=== PATIENT | male | born 1945 | race Caucasian/White ===

== ENCOUNTER 2021-09-09 16:18 | Inpatient (IN) ==
[2021-09-09] MEDS ORDERED: IPRATROPIUM/ALBUTEROL 3 ML AMPUL.NEB NEB ONE ×2 (16:57→23:37)
--- NOTE | 2021-09-09 17:19 | XRay Report ---
HISTORY: Hypoxia, weakness FINDINGS: The lungs are clear and normally expanded. There is no congestive heart failure, mass or pleural effusion. The heart size is normal. Dual-chamber pacemaker is well-positioned. Comparison with prior exam done on 03/20/19 shows no significant change. IMPRESSION: Normal exam Interpreted and Authenticated by: Varun Arana 09/09/21
[2021-09-09] MEDS ORDERED: 0.9 % SODIUM CHLORIDE 500 ML IV ONE (17:26)
--- NOTE | 2021-09-09 17:28 | Emergency Department Note ---
Weakness HPI General Chief complaint: Weakness Stated complaint: SOB, weakness Time Seen by Provider: 09/09/21 16:22 Source: patient Mode of arrival: wheelchair History of Present Illness HPI Narrative: This is a 76-year-old male patient with a history of stage III kidney disease, poorly controlled type 2 diabetes, hypertension, atrial fibrillation/flutter on chronic Xarelto, and dual-chamber permanent pacemaker with recent admission to [facility] on 08/05/2021 for hypoxic respiratory failure secondary to Covid pneumonia, and recent rule out for PE with a negative CTA of the chest on 08/18/2021 who presents to our ER for acute and sudden onset weakness after getting up from a nap around 2 PM today. He denies shortness of breath. His home health nurse noted that his oxygen saturations were 77% on room air and his systolic blood pressures were 70s. She sent him to the ER for evaluation. When he presented to the emergency room his oxygen saturations were 88% on room air and he has been requiring 2-5 L nasal cannula here. Patient denies a history of O2 dependency. Denies a history of COPD. Is not on inhalers. Blood pressure is 120/51 mmHg. Previous echocardiogram from his admission in July showed an echo with preserved EF and undetermined diastolic dysfunction. He denies increased weight gain or lower extremity edema. He has not missed any of his Xarelto. He denies chest pain or shortness of breath. Denies lightheadedness or dizziness. Denies melena or hematochezia. Denies nausea or vomiting. Denies abdominal pain. Denies dysuria hematuria. Endorses urinary frequency, but this is his baseline. Related Data Home Medications Medication Instructions Recorded Confirmed cholecalciferol (vitamin D3) 50 2,000 unit PO DAILY 05/17/18 08/18/21 mcg (2,000 unit) capsule insulin glargine 100 unit/mL (3 40 unit SUB-Q QDAY ml 08/18/21 08/18/21 mL) subcutaneous pen (Lantus Solostar U-100 Insulin) metoprolol succinate 50 mg 50 mg PO BID tab 08/18/21 08/18/21 tablet,extended release 24 hr Previous Rx's Medication Instructions Recorded fluticasone 250 mcg-salmeterol 50 1 inh INHALATION Q12H #60 each 10/31/18 mcg/dose blistr powdr for inhalation (Advair Diskus) rivaroxaban 15 mg tablet 15 mg PO QDAY 90 Days #90 tab 12/22/20 lisinopril 40 mg tablet 40 mg PO QDAY 90 Days #90 tab 03/01/21 doxazosin 8 mg tablet 8 mg PO QDAY #90 tab 05/10/21 albuterol sulfate 90 mcg/actuation 2 puff INHALATION Q6H PRN #18 g 05/31/21 aerosol inhaler (Ventolin HFA) insulin aspart U-100 100 unit/mL See Rx Instructions SUB-Q .COMPLEX 06/01/21 (3 mL) subcutaneous pen (Novolog #15 ml Flexpen U-100 Insulin aspart) liraglutide 0.6 mg/0.1 mL (18 mg/3 1.8 mg (0.3 mL) SUB-Q QDAY #9 ml 06/21/21 mL) subcutaneous pen injector (Victoza 3-Yordy) gabapentin 300 mg capsule 300 mg PO TID 30 Days #90 cap 07/05/21 pantoprazole 40 mg tablet,delayed 40 mg PO QDAY 90 Days #90 tab 07/12/21 release 3 wheeled walker #1 ea 08/18/21 furosemide 40 mg tablet 40 mg PO QAM #90 tab 08/18/21 simvastatin 40 mg tablet 40 mg PO QDAY 90 Days #90 tab 09/06/21 Allergies Allergy/AdvReac Type Severity Reaction Status Date / Time ciprofloxacin AdvReac Intermediate Itching Verified 08/18/21 10:58 Review of Systems ROS ROS Narrative: Narrative: All systems ED: reviewed and negative except as stated. [facility] Narrative Patient History Narrative: Narrative: Medical/Surgical/Family History All Active Problems (Updated 09/09/21 @ 19:31 by Katey Jameson PA-C) Hypoxia (Acute) Pneumonia (Acute) Pneumonia due to COVID-19 virus (Chronic) History of severe acute respiratory syndrome coronavirus 2 (SARS-CoV-2) disease (Chronic) Iron deficiency anemia (Acute) Pacemaker (Chronic) Medicare annual wellness visit, initial (Acute) Obesity (Chronic) Chronic anticoagulation (Chronic) Sick sinus syndrome (Chronic) MRI safe cardiac pacemaker in situ (Chronic) Pacemaker (Chronic) Esophageal stenosis (Chronic) History of colonoscopy (Chronic 11/09/17) History of esophagogastroduodenoscopy (EGD) (Chronic 04/18/18) Diabetic neuropathy (Chronic) Status post surgery (Chronic) H/O colonoscopy (Chronic 02/10/09) Hx of cataract surgery (Chronic) S/P ablation of atrial fibrillation (Chronic 09/24/13) Vitamin D deficiency (Chronic) Peripheral neuropathy (Chronic) Osteoarthrosis (Chronic) Severe obesity (Chronic) Hypertension, essential (Chronic) Hyperlipidemia (Chronic) Hyperkalemia (Chronic 12/26/11) Eczema (Chronic) DMII (diabetes mellitus, type 2) (Chronic) COPD (chronic obstructive pulmonary disease) (Chronic) Chronic kidney disease, stage 3 (Chronic) Atrial fibrillation (Chronic) Medical History Alkalosis Atrial fibrillation Atrial flutter Gonzalez's palsy Bradycardia Chronic anticoagulation Chronic kidney disease, stage 3 COPD (chronic obstructive pulmonary disease) Diabetic neuropathy DMII (diabetes mellitus, type 2) Eczema Esophageal stenosis History of severe acute respiratory syndrome coronavirus 2 (SARS-CoV-2) disease July 2021 Hyperkalemia (12/26/11) Hyperlipidemia Hypertension, essential Iron deficiency anemia Medicare annual wellness visit, initial MRI safe cardiac pacemaker in situ 03/2019 Obesity Osteoarthrosis Otitis externa due to herpes zoster (03/28/11) Pacemaker Paroxysmal supraventricular tachycardia Peripheral neuropathy Pneumonia due to COVID-19 virus July 2021 Severe obesity Sick sinus syndrome Uncontrolled type 2 diabetes mellitus Vitamin D deficiency Surgical History H/O colonoscopy (02/10/09) History of colonoscopy (11/09/17) History of esophagogastroduodenoscopy (EGD) (04/18/18) 05/25/17 Hx of cataract surgery 2009- bilateral Pacemaker March 2019 S/P ablation of atrial fibrillation (09/24/13) Ablation of aberrant conduction pathway-atrial flutter Status post surgery Repair of nasal fracture Family History Mother Type 2 diabetes mellitus Essential hypertension Social History Smoking Status: Former smoker Alcohol Intake Frequency: a few times a month Substance Use: does not use Exam Narrative Narrative: General: AOx3, NAD, nontoxic appearing. Pleasant and conversant. HEENT: PERRL, EOMI, normocephalic. Moist mucous membranes. Normal facies and normal dentition. Chest: Symmetric, no pain to palpation Respiratory: Lungs are rhonchorous throughout, no wheezes. No respiratory distress. Unlabored breathing. Audible productive cough. Heart: Irregular rate and atrial fibrillation rhythm, no murmurs/clicks/rubs. Abdomen: Non-tender, Non distended. No organomegaly. Extremities: Warm and well perfused. No edema. DP 2+ bilaterally. No venous stasis. Neuro: No focal deficits. Cranial nerves II-XII grossly normal. Skin: Warm dry, no rashes or lesions, no cyanosis. Psych: Normal mood and affect Heme/Lymph: No abnormal bruising Course Course Course Narrative: 76-year-old male with recent diagnosis and admission for hypoxic respiratory failure secondary to Covid presents with weakness, hypoxia, and hypotension Reevaluation(s) Reevaluation #1: Obtain blood work and chest x-ray DuoNeb treatment Verify his oxygen requirements Check orthostatics Give 500 cc IV fluids Reevaluation #2: Chest x-ray without infiltrates or other intrapulmonary process. No interst itial pulmonary edema. CBC with normal white blood cell count and stable anemia with a hemoglobin of 9.4 (9.1 in 2019) Chem-8 without electrolyte derangements BNP is 4000, no previous BMP for comparison Blood pressures have been stable here with systolics 90s to 130s Reevaluation #3: Patient is orthostatic with blood pressures dropping from the systolic 130s to 105 mmHg. Patient's oxygen requirements are 5 L and oxygen saturations dropped to 82% on room air Creatinine is 2.1 with baseline creatinine noted to be 1.8 at [facility] EKG shows atrial fibrillation with a rate of 81 bpm and no ischemic [address] ST abnormalities. Additional Reevaluation(s): CT of the chest without contrast shows bilateral patchy infiltrates and findings are consistent with a bronchial pneumonia and mucous plugging---> initiate IV azithromycin and ceftriaxone Vital Signs Vital signs: Vital Signs Temperature 97.2 F 09/09/21 16:20 Pulse Rate 67 09/09/21 16:20 Respiratory Rate 16 09/09/21 16:20 Blood Pressure 93/56 09/09/21 16:20 Pulse Oximetry (%) 86 L 09/09/21 16:20 Temperature 97.2 F 09/09/21 16:20 Pulse Rate 72 09/09/21 19:32 Respiratory Rate 18 09/09/21 19:32 Blood Pressure 128/99 09/09/21 19:32 Pulse Oximetry (%) 83 L 09/09/21 19:32 MDM MDM Narrative Medical decision making narrative: Bronchial pneumonia Hypoxia Acute on chronic renal insufficiency Orthostasis Patient has high oxygen requirements and this is new for him. CT without cont rast shows bronchial pneumonia and I have initiated IV azithromycin and ceftriaxone. I have reached out to hospitalist for admissio--> Dr. Suazo has accepted the patient for admission. Lab Data Result diagrams: 09/09/21 16:40 09/09/21 16:40 Labs: Lab Results 09/09/21 09/09/21 09/09/21 Range/Units 16:40 16:40 16:40 WBC 5.8 (4.5-11.0) K/mcL RBC 3.62 L (4.63-6.08) M/mcL Hgb 9.4 L (13.7-17.5) g/dL Hct 30.7 L (40.1-51.0) % MCV 84.8 (80.0-100.0) fL MCH 26.0 (26.0-34.0) pg MCHC 30.6 L (31.0-36.0) g/dL RDW 16.1 H (11.5-14.5) % Plt Count 387 (140-440) K/mcL MPV 10.9 H (7.4-10.4) fL Seg Neutrophils % 64 (38-78) % Lymphocytes % 27 (15-49) % Monocytes % (Manual) 6 (1-12) % Eosinophils % (Manual) 3 (0-7) % Platelet Estimate Normal (Normal) RBC Morphology Abnormal A (Normal) Poikilocytosis 2+ A (None Seen) Anisocytosis 2+ A (None Seen) Sodium 139 (133-145) mmol/L Potassium 3.6 (3.3-5.1) mmol/L Chloride 99 (96-108) mmol/L Carbon Dioxide 27 (22-30) mmol/L Anion Gap 13.0 (8.0-16.0) BUN 22 (8-23) mg/dL Creatinine 2.1 H (0.7-1.2) mg/dL GFR Calculation 29 Glucose 187 H (70-105) mg/dL Calcium 9.1 (8.6-10.4) mg/dL Total Bilirubin 0.4 (0.1-1.0) mg/dL AST 9 (<40) U/L ALT < 5 (<40) U/L Alkaline Phosphatase 56 (39-117) U/L NT-Pro-B Natriuret Pep 4019.0 H (<450.0) pg/mL Total Protein 6.7 (5.9-8.4) gm/dL Albumin 3.3 (3.2-5.2) gm/dL Globulin 3.4 (2.2-3.7) gm/dL Albumin/Globulin Ratio 1.0 (1.0-2.3) TSH (0.27-5.01) uIU/mL 09/09/21 Range/Units 16:40 WBC (4.5-11.0) K/mcL RBC (4.63-6.08) M/mcL Hgb (13.7-17.5) g/dL Hct (40.1-51.0) % MCV (80.0-100.0) fL MCH (26.0-34.0) pg MCHC (31.0-36.0) g/dL RDW (11.5-14.5) % Plt Count (140-440) K/mcL MPV (7.4-10.4) fL Seg Neutrophils % (38-78) % Lymphocytes % (15-49) % Monocytes % (Manual) (1-12) % Eosinophils % (Manual) (0-7) % Platelet Estimate (Normal) RBC Morphology (Normal) Poikilocytosis (None Seen) Anisocytosis (None Seen) Sodium (133-145) mmol/L Potassium (3.3-5.1) mmol/L Chloride (96-108) mmol/L Carbon Dioxide (22-30) mmol/L Anion Gap (8.0-16.0) BUN (8-23) mg/dL Creatinine (0.7-1.2) mg/dL GFR Calculation Glucose (70-105) mg/dL Calcium (8.6-10.4) mg/dL Total Bilirubin (0.1-1.0) mg/dL AST (<40) U/L ALT (<40) U/L Alkaline Phosphatase (39-117) U/L NT-Pro-B Natriuret Pep (<450.0) pg/mL Total Protein (5.9-8.4) gm/dL Albumin (3.2-5.2) gm/dL Globulin (2.2-3.7) gm/dL Albumin/Globulin Ratio (1.0-2.3) TSH 2.78 (0.27-5.01) uIU/mL ED POC Tests ED POC Tests: ANDREA - Influenza A Negative ANDREA - Influenza B Negative ANDREA - SARS Antigen Negative Discharge Plan Patient/Caregiver Discharge Instructions Pt seen by INSTRUMENT ASSEMBLY SUPERVISOR/PA only: Yes Clinical Impression: Hypoxia, Pneumonia Patient Disposition: Xfer As Inpt ([facility]) Follow up with: Tutu Greenberg PA-C [Primary Care Provider] - Prescriptions: No Action lisinopril 40 mg tablet 40 mg PO QDAY 90 Days Qty: 90 1RF doxazosin 8 mg tablet 8 mg PO QDAY Qty: 90 1RF albuterol sulfate [Ventolin HFA] 90 mcg/actuation HFA aerosol inhaler 2 puff INHALATION Q6H PRN (Reason: shortness of breath or wheezing) Qty: 18 1RF Novolog Flexpen U-100 Insulin 100 unit/mL (3 mL) insulin pen See Rx Instructions unit SUB-Q .COMPLEX Qty: 15 1RF Rx Instructions: inject as per insulin sliding scale protocol max daily dose of 40 units Victoza 3-Yordy 0.6 mg/0.1 mL (18 mg/3 mL) pen injector 1.8 mg SUB-Q QDAY Qty: 9 3RF gabapentin 300 mg capsule 300 mg PO TID 30 Days Qty: 90 2RF pantoprazole 40 mg tablet,delayed release (DR/EC) 40 mg PO QDAY 90 Days Qty: 90 1RF simvastatin 40 mg tablet 40 mg PO QDAY 90 Days Qty: 90 1RF fluticasone propion-salmeterol [Advair Diskus] 250-50 mcg/dose blister with device 1 inh INHALATION Q12H Qty: 60 2RF rivaroxaban 15 mg tablet 15 mg PO QDAY 90 Days Qty: 90 3RF Lantus Solostar U-100 Insulin 100 unit/mL (3 mL) insulin pen 40 unit SUB-Q QDAY 0RF Label Comments: take at night metoprolol succinate 50 mg tablet extended release 24 hr 50 mg PO BID 0RF furosemide 40 mg tablet 40 mg PO QAM Qty: 90 1RF Rx Instructions: to prevent swelling (DME) 3 wheeled walker See Rx Instructions .Route .MEDSUPPLY Qty: 1 0RF Rx Instructions: As directed cholecalciferol (vitamin D3) 2,000 UNIT capsule 2,000 unit PO DAILY 0RF
[2021-09-09 17:47] LABS: Hematocrit 30.7 % (40.1-51.0); Hemoglobin 9.4 g/dL (13.7-17.5); Mean Cell Volume 84.8 fL (80.0-100.0); Mean Corpuscular HGB Conc 30.6 g/dL (31.0-36.0); Mean Platelet Volume 10.9 fL (7.4-10.4); Platelet Count 387 K/mcL (140-440); RBC 3.62 M/mcL (4.63-6.08); Red Cell Distribution Width 16.1 % (11.5-14.5); WBC 5.8 K/mcL (4.5-11.0)
[2021-09-09 18:01] LABS: ALT/SGPT < 5 U/L (<40); AST/SGOT 9 U/L (<40); Albumin 3.3 gm/dL (3.2-5.2); Alkaline Phosphatase 56 U/L (39-117); Bilirubin,Total 0.4 mg/dL (0.1-1.0); Blood Urea Nitrogen 22 mg/dL (8-23); Calcium 9.1 mg/dL (8.6-10.4); Carbon Dioxide 27 mmol/L (22-30); Chloride 99 mmol/L (96-108); Globulin 3.4 gm/dL (2.2-3.7); Glomerular Filtration Rate 29; Glucose 187 mg/dL (70-105)
[2021-09-09 18:39] LABS: Anisocytosis 2+ (None Seen); Eosinophils % (Manual) 3 % (0-7); Lymphocytes % 27 % (15-49); Monocytes % (Manual) 6 % (1-12); Platelet Estimate NORMAL (Normal); Poikilocytosis 2+ (None Seen); RBC Morphology ABNORMAL (Normal); Segmented Neutrophils % 64 % (38-78)
[2021-09-09] MEDS ORDERED: AZITHROMYCIN 500 MG in DEXTROSE 5% IN WATER 250 ML IV ONE (19:19)
[2021-09-09] MEDS ORDERED: cefTRIAXone 1 GM VIAL IV ONE (19:20)
--- NOTE | 2021-09-09 19:24 | Cat Scan Report ---
History: Short of breath, weakness, rule out pneumonia TECHNIQUE: The chest was imaged without contrast in axial plane at 2.5 mm intervals. Sagittal and coronal reformats were created. The radiation exposure was limited using dose reduction technology. FINDINGS: There is significant thickening of the bronchial irvera in both lower lobes. Some of the third order bronchi are occluded. There is milder bronchitis in the right middle lobe and lingula. There is a patchy distribution of small infiltrates in both lungs, predominantly involving the lower lobes. There is subtle involvement in the left upper lobe, lingula and right middle lobe. These findings were not apparent on the preceding chest x-ray. There is no lobar consolidation. No pulmonary mass is present. No pleural effusion is present. No abnormally enlarged lymph nodes are present. The heart is normal in size. There is severe atherosclerotic coronary artery disease. Pacemaker wires in the right atrium and ventricle. There is also severe atherosclerotic disease in the arteries in the upper abdomen. No pericardial effusion is present. These esophagus is mildly distended with fluid. IMPRESSION: Bilateral bronchitis and bronchial pneumonia Katey Jameson was called with report Interpreted and Authenticated by: Varun Arana 09/09/21
--- NOTE | 2021-09-09 20:21 | Internal Med History&Physical ---
HPI History of Present Illness Patient information: Note initiated : 09/09/21 at 8:14 pm Service Date, if different from initiated Date: [] Patient: Juventino Lopez a 76 y/o M admitted on for SOB, weakness. Chief Complaint: [] History of present illness: Mr. Lopez is a 76 year old M Presents to the ED with increased shortness of breath and worsening cough. Really noticed shortness of breath when he got up today to go the bathroom and his family members brought him in. He has had increasing shortness of breath over the past few days. He has a chronic cough but his cough has been worsening and it is mildly productive. He was at [facility] for 4 days in July for Covid pneumonia did not require oxygen at home. Denies any fevers but has chills. Home health nurse recorded a oxygen saturation of 77%. Has been increasingly weak lately. Did receive a breathing treatment was some subjective improvement. Was on 5 L nasal cannula in the ED down to 2-07/11. CT of the chest was read as bilateral bronchitis and bronchial pneumonia. He had a CTA of the chest done August 18 showed no PE. Review of Systems: Pertinent positives as above. Denies headache/fever/chills/nausea/vomiting/chest or abdominal pain//diarrhea. Remaining 10 point review of system reviewed negative PFSH PFSH All Active Problems (Updated 09/09/21 @ 19:31 by Katey Jameson PA-C) Hypoxia (Acute) Pneumonia (Acute) Pneumonia due to COVID-19 virus (Chronic) History of severe acute respiratory syndrome coronavirus 2 (SARS-CoV-2) disease (Chronic) Iron deficiency anemia (Acute) Pacemaker (Chronic) Medicare annual wellness visit, initial (Acute) Obesity (Chronic) Chronic anticoagulation (Chronic) Sick sinus syndrome (Chronic) MRI safe cardiac pacemaker in situ (Chronic) Pacemaker (Chronic) Esophageal stenosis (Chronic) History of colonoscopy (Chronic 11/09/17) History of esophagogastroduodenoscopy (EGD) (Chronic 04/18/18) Diabetic neuropathy (Chronic) Status post surgery (Chronic) H/O colonoscopy (Chronic 02/10/09) Hx of cataract surgery (Chronic) S/P ablation of atrial fibrillation (Chronic 09/24/13) Vitamin D deficiency (Chronic) Peripheral neuropathy (Chronic) Osteoarthrosis (Chronic) Severe obesity (Chronic) Hypertension, essential (Chronic) Hyperlipidemia (Chronic) Hyperkalemia (Chronic 12/26/11) Eczema (Chronic) DMII (diabetes mellitus, type 2) (Chronic) COPD (chronic obstructive pulmonary disease) (Chronic) Chronic kidney disease, stage 3 (Chronic) Atrial fibrillation (Chronic) Medical History Alkalosis Atrial fibrillation Atrial flutter Gonzalez's palsy Bradycardia Chronic anticoagulation Chronic kidney disease, stage 3 COPD (chronic obstructive pulmonary disease) Diabetic neuropathy DMII (diabetes mellitus, type 2) Eczema Esophageal stenosis History of severe acute respiratory syndrome coronavirus 2 (SARS-CoV-2) disease July 2021 Hyperkalemia (12/26/11) Hyperlipidemia Hypertension, essential Iron deficiency anemia Medicare annual wellness visit, initial MRI safe cardiac pacemaker in situ 03/2019 Obesity Osteoarthrosis Otitis externa due to herpes zoster (03/28/11) Pacemaker Paroxysmal supraventricular tachycardia Peripheral neuropathy Pneumonia due to COVID-19 virus July 2021 Severe obesity Sick sinus syndrome Uncontrolled type 2 diabetes mellitus Vitamin D deficiency Surgical History H/O colonoscopy (02/10/09) History of colonoscopy (11/09/17) History of esophagogastroduodenoscopy (EGD) (04/18/18) 05/25/17 Hx of cataract surgery 2009- bilateral Pacemaker March 2019 S/P ablation of atrial fibrillation (09/24/13) Ablation of aberrant conduction pathway-atrial flutter Status post surgery Repair of nasal fracture Family History Mother Type 2 diabetes mellitus Essential hypertension Social History household members: spouse housing: house lives independently: Yes marital status: education level: high school service: No occupational status: retired 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 other: Children-2 Grandchildren-4 eating out: rarely or never physical activity: other details: riding lawnmower smoking status: Former smoker smoking status start date: 07/10/52 smoking status stop date: 07/10/83 alcohol intake frequency: a few times a month substance use type: does not use adriana/confucianism: None seatbelt use: never MEDS/ALLERGIES Home Medications and Allergies Home Medications Medication Instructions Recorded Confirmed Type cholecalciferol (vitamin D3) 50 2,000 unit PO DAILY 05/17/18 09/09/21 History mcg (2,000 unit) capsule fluticasone 250 mcg-salmeterol 50 1 inh INHALATION Q12H #60 each 10/31/18 09/09/21 Rx mcg/dose blistr powdr for inhalation (Advair Diskus) rivaroxaban 15 mg tablet 15 mg PO QDAY 90 Days #90 tab 12/22/20 08/18/21 Rx lisinopril 40 mg tablet 40 mg PO QDAY 90 Days #90 tab 03/01/21 09/09/21 Rx doxazosin 8 mg tablet 8 mg PO QDAY #90 tab 05/10/21 08/18/21 Rx albuterol sulfate 90 mcg/actuation 2 puff INHALATION Q6H PRN #18 g 05/31/21 09/09/21 Rx aerosol inhaler (Ventolin HFA) insulin aspart U-100 100 unit/mL See Rx Instructions SUB-Q .COMPLEX 06/01/21 09/09/21 Rx (3 mL) subcutaneous pen (Novolog #15 ml Flexpen U-100 Insulin aspart) liraglutide 0.6 mg/0.1 mL (18 mg/3 1.8 mg (0.3 mL) SUB-Q QDAY #9 ml 06/21/21 09/09/21 Rx mL) subcutaneous pen injector (Victoza 3-Yordy) gabapentin 300 mg capsule 300 mg PO TID 30 Days #90 cap 07/05/21 09/09/21 Rx pantoprazole 40 mg tablet,delayed 40 mg PO QDAY 90 Days #90 tab 07/12/21 08/18/21 Rx release 3 wheeled walker #1 ea 08/18/21 09/09/21 Rx furosemide 40 mg tablet 40 mg PO QAM #90 tab 08/18/21 09/09/21 Rx insulin glargine 100 unit/mL (3 40 unit SUB-Q QDAY ml 08/18/21 09/09/21 History mL) subcutaneous pen (Lantus Solostar U-100 Insulin) metoprolol succinate 50 mg 50 mg PO BID tab 08/18/21 09/09/21 History tablet,extended release 24 hr simvastatin 40 mg tablet 40 mg PO QDAY 90 Days #90 tab 09/06/21 09/09/21 Rx Allergies Allergy/AdvReac Type Severity Reaction Status Date / Time ciprofloxacin AdvReac Intermediate Itching Verified 08/18/21 10:58 EXAM Constitutional Vitals: Temp Pulse Resp BP Pulse Ox 97.2 F 68 19 117/60 91 09/09/21 16:20 09/09/21 20:02 09/09/21 20:02 09/09/21 20:02 09/09/21 20:02 Exam: General: Alert, Awake, No acute Distress, obese Eyes/N/T: EOMI, PERRL, moistMM Head/Neck: neck supple, normocephalic atraumatic CV: RRR, No murmurs, normal s1/s2 Pulm: Rhonchi/wheezing b/l, Abd: soft, nontender, +BS x4 Ext: no clubbing/cyanosis/edema Neuro: Alert, no focal deficits, moves all extremities, CN 2-12 grossly intact, symmetrical strength b/l upper/lower, sensations intact b/l upper/lower Skin: warm/dry DATA Data Completed and Pending Labs: Labs from last 24 hours 09/09/21 09/09/21 09/09/21 16:40 16:40 16:40 WBC RBC Hgb Hct MCV MCH MCHC RDW Plt Count MPV Seg Neutrophils % Lymphocytes % Monocytes % (Manual) Eosinophils % (Manual) Platelet Estimate RBC Morphology Poikilocytosis Anisocytosis Sodium 139 Potassium 3.6 Chloride 99 Carbon Dioxide 27 Anion Gap 13.0 BUN 22 Creatinine 2.1 H GFR Calculation 29 Glucose 187 H Calcium 9.1 Total Bilirubin 0.4 AST 9 ALT < 5 Alkaline Phosphatase 56 NT-Pro-B Natriuret Pep 4019.0 H Total Protein 6.7 Albumin 3.3 Globulin 3.4 Albumin/Globulin Ratio 1.0 TSH 2.78 09/09/21 16:40 WBC 5.8 RBC 3.62 L Hgb 9.4 L Hct 30.7 L MCV 84.8 MCH 26.0 MCHC 30.6 L RDW 16.1 H Plt Count 387 MPV 10.9 H Seg Neutrophils % 64 Lymphocytes % 27 Monocytes % (Manual) 6 Eosinophils % (Manual) 3 Platelet Estimate Normal RBC Morphology Abnormal A Poikilocytosis 2+ A Anisocytosis 2+ A Sodium Potassium Chloride Carbon Dioxide Anion Gap BUN Creatinine GFR Calculation Glucose Calcium Total Bilirubin AST ALT Alkaline Phosphatase NT-Pro-B Natriuret Pep Total Protein Albumin Globulin Albumin/Globulin Ratio TSH A/P Narrative A/P Narrative: A: *Acute hypoxic respiratory failure: 2/2 pneumonia and COPD +?post-covid lung *CAP: *AECOPD: *Generalized weakness/deconditioning: *DM w/neuropathy: *CKD III: *Anemia, chronic: *AFib: Xarelto/BB *HTN/HLD: *GERD: P: -Rocephin/azithromycin, pending SC -RVP/myco/strep pending -Check PCT -nebs, IS/Acapella -Continue home BB, hold ACEI/Lasix and follow-up renal function -basal and SSI -PT/OT -CM for placement needs -Home medication reconciliation -ppx: Xarelto / home PPI DNR Time Spent With Patient Time: Total time spent is greater than 50% in coordination of care (as documented) at patient's floor/unit and/or counseling patient:
[2021-09-09] MEDS ORDERED: DEXTROSE 31 GM ORAL.SUSP PO PRN (22:14)
[2021-09-09] MEDS ORDERED: ONDANSETRON 4 MG/2 ML VIAL IV PRN (22:14)
[2021-09-09] MEDS ORDERED: ACETAMINOPHEN 325 MG TABLET PO PRN (22:14)
[2021-09-09] MEDS ORDERED: POTASSIUM CHLORIDE 40 MEQ in DEXTROSE 5% IN WATER 500 ML IV PRN (22:14)
[2021-09-09] MEDS ORDERED: SENNOSIDES 1 TABLET PO PRN (22:14)
[2021-09-09] MEDS ORDERED: LABETALOL 5 MG/ML ML IV PRN (22:14)
[2021-09-09] MEDS ORDERED: MAGNESIUM SULFATE 2 GM/50 ML BAG IV PRN (22:14)
[2021-09-09] MEDS ORDERED: METOPROLOL TARTRATE 5 MG/5 ML VIAL IV PRN (22:14)
[2021-09-09] MEDS ORDERED: POLYETHYLENE GLYCOL 3350 17 GM PACKET PO PRN (22:14)
[2021-09-09] MEDS ORDERED: POTASSIUM CHLORIDE 20 MEQ TABLET PO PRN ×2 (22:14)
[2021-09-09] MEDS ORDERED: DEXTROSE 50% 50 ML VIAL IV PRN (22:14)
[2021-09-09] MEDS ORDERED: cefTRIAXone 1 GM VIAL ONE (23:21)
[2021-09-09] MEDS ORDERED: GABAPENTIN 300 MG CAPSULE ONE (23:22)
[2021-09-09] MEDS: DOCUSATE SODIUM 100 MG CAPSULE PO SCH (23:24)
[2021-09-09] MEDS: INSULIN LISPRO 1 UNIT/0.01 ML UNIT SQ SCH (23:25)
[2021-09-09] MEDS: GABAPENTIN 300 MG CAPSULE PO SCH (23:25)
[2021-09-09] MEDS: 0.9 % SODIUM CHLORIDE 10 ML SYRINGE IV SCH (23:26)
[2021-09-09] MEDS: cefTRIAXone 2 GM in DEXTROSE 5% IN WATER 50 ML IV SCH (23:26)
[2021-09-09] MEDS: AZITHROMYCIN 500 MG in DEXTROSE 5% IN WATER 250 ML IV SCH (23:30)
[2021-09-09] MEDS: IPRATROPIUM/ALBUTEROL 3 ML AMPUL.NEB NEB SCH (23:36)
[2021-09-09] MEDS: BUDESONIDE 0.5 MG/2 ML AMPUL.NEB NEB SCH (23:36)
[2021-09-09] MEDS ORDERED: BUDESONIDE 0.5 MG/2 ML AMPUL.NEB ONE (23:37)
[2021-09-09] MEDS: METOPROLOL SUCCINATE 50 MG TAB.XL.24H PO SCH (23:47)
[2021-09-09] MEDS ORDERED: METOPROLOL TARTRATE 25 MG TABLET ONE (23:53)
[2021-09-10 06:48] LABS: Basophils # (Auto) 0.05 K/mcL (0.00-0.30); Basophils % (Auto) 0.9 % (0.0-2.0); Eosinophils % (Auto) 1.8 % (0.0-7.0); Hematocrit 28.3 % (40.1-51.0); Hemoglobin 8.2 g/dL (13.7-17.5); Lymphocytes # (Auto) 1.23 K/mcL (1.50-4.80); Lymphocytes % (Auto) 21.5 % (15.5-49.0); Mean Cell Volume 85.8 fL (80.0-100.0); Mean Platelet Volume 10.6 fL (7.4-10.4); Monocytes # (Auto) 0.61 K/mcL (0.10-0.90); Monocytes % (Auto) 10.7 % (1.0-12.0); Neutrophils % (Auto) 65.1 % (38.0-78.0); Platelet Count 323 K/mcL (140-440); WBC 5.7 K/mcL (4.5-11.0)
[2021-09-10 07:12] LABS: ALT/SGPT < 5 U/L (<40); AST/SGOT 9 U/L (<40); Albumin 2.7 gm/dL (3.2-5.2); Albumin/Globulin Ratio 0.9 (1.0-2.3); Alkaline Phosphatase 55 U/L (39-117); Bilirubin,Direct < 0.2 mg/dL (0-0.3); Bilirubin,Total 0.3 mg/dL (0.1-1.0); Blood Urea Nitrogen 21 mg/dL (8-23); Calcium 8.3 mg/dL (8.6-10.4); Carbon Dioxide 24 mmol/L (22-30); Chloride 99 mmol/L (96-108); Glomerular Filtration Rate 35; Glucose 196 mg/dL (70-105); Lactate Dehydrogenase 323 U/L (135-225); Phosphorous 3.9 mg/dL (2.5-4.5); Triglycerides 121 mg/dL (<150); Uric Acid 11.9 mg/dL (2.5-8.0)
[2021-09-10] MEDS: IPRATROPIUM/ALBUTEROL 3 ML AMPUL.NEB NEB SCH ×4 (07:45→21:57)
[2021-09-10] MEDS: BUDESONIDE 0.5 MG/2 ML AMPUL.NEB NEB SCH ×2 (07:45→21:57)
[2021-09-10] MEDS: METOPROLOL SUCCINATE 50 MG TAB.XL.24H PO SCH ×2 (08:12→22:40)
[2021-09-10] MEDS: RIVAROXABAN 15 MG TABLET PO SCH (08:12)
[2021-09-10] MEDS: PANTOPRAZOLE 40 MG TABLET PO SCH (08:12)
[2021-09-10] MEDS: DOCUSATE SODIUM 100 MG CAPSULE PO SCH ×2 (08:13→22:32)
[2021-09-10] MEDS: INSULIN LISPRO 1 UNIT/0.01 ML UNIT SQ SCH ×4 (08:13→22:32)
[2021-09-10] MEDS: INSULIN GLARGINE, HUMAN 1 UNIT/0.01 ML SQ SCH (08:13)
[2021-09-10] MEDS: GABAPENTIN 300 MG CAPSULE PO SCH ×3 (08:13→22:40)
[2021-09-10] MEDS: 0.9 % SODIUM CHLORIDE 10 ML SYRINGE IV SCH ×3 (08:14→22:32)
[2021-09-10] MEDS ORDERED: methylPREDNISolone SOD SUCC 125 MG/2 ML VIAL IV ONE (08:28)
--- NOTE | 2021-09-10 08:28 | Internal Med Progress Note ---
SUBJECTIVE Subjective Patient information: Note initiated : 09/10/21 at 8:25 am Service Date, if different from initiated Date: [] Patient: Juventino Lopez a 76 y/o M admitted on 09/09/21 for SOB, weakness. Chief Complaint: [] Interval history: History of present illness: Mr. Lopez is a 76 year old M Presents to the ED with increased shortness of breath and worsening cough. Really noticed shortness of breath when he got up today to go the bathroom and his family members brought him in. He has had increasing shortness of breath over the past few days. He has a chronic cough but his cough has been worsening and it is mildly productive. He was at [facility] for 4 days in July for Covid pneumonia did not require oxygen at home. Denies any fevers but has chills. Home health nurse recorded a oxygen saturation of 77%. Has been increasingly weak lately. Did receive a breathing treatment was some subjective improvement. Was on 5 L nasal cannula in the ED down to 2-1/2. CT of the chest was read as bilateral bronchitis and bronchial pneumonia. He had a CTA of the chest done August 18 showed no PE. 3/4 Patient feeling a little bit better. Feels like he is able to cough up more phlegm. Awaiting strep urine antigen. Decrease his oxygen at 3-1/2 L this morning. Shortness of breath gradually improving. Review of Systems: denies headache/fever/chills/nausea/vomiting/chest or abdominal pain/diarrhea. Otherwise see above. Constitutional Vitals: Vital Signs Temp Pulse Resp BP Pulse Ox 97.8 F 82 14 142/57 94 09/10/21 07:00 09/10/21 07:56 09/10/21 07:56 09/10/21 07:00 09/10/21 07:56 Period Temp Pulse Resp BP Sys/Smith Pulse Ox Last 24 Hr 97.2 F-98.5 F 55-84 13-24 91-146/43-102 86-98 Intake and Output 09/09/21 09/10/21 09/10/21 21:59 05:59 13:59 Intake Total 750 Output Total 200 150 Balance 550 -150 Weight 111.357 kg 111.357 kg Intake & Output: Intake & Output 09/09/21 09/10/21 09/10/21 21:59 05:59 13:59 Intake Total 750 Output Total 200 150 Balance 550 -150 Weight 111.357 kg 111.357 kg Intake: IV 750 Sodium Chloride 0.9% 500 ml @ 500 Wide Open IV BOLUS ONE Rx#: [id number] Zithromax 500 mg In Dextrose 5% 250 in Water 250 ml @ 250 mls/hr IV ONCE ONE Rx#:[id number] Output: Urine Catheter Amount 150 Void Amount 200 Other: Urine Appearance Clear Clear Urine Color Dark Yellow Dark Yellow Stool Size Smear # Voids 1 # of times incontinent of 1 Bowels Exam: General: Alert, Awake, No acute Distress, obese Eyes/N/T: EOMI, Head/Neck: neck supple, CV: RRR, No murmurs, Pulm: Rhonchi b/l, wheezing improving Abd: soft, nontender, +BS x4 Ext: no clubbing/cyanosis/edema Neuro: Alert, no focal deficits, moves all extremities, Skin: warm/dry OBJ DATA Labs CBC & Chem 7: 09/10/21 05:12 09/10/21 05:12 Labs: Abnormal Lab Results 09/10/21 09/10/21 09/09/21 05:12 05:12 16:40 RBC 3.30 L Hgb 8.2 L Hct 28.3 L MCH 24.8 L MCHC 29.0 L RDW 16.0 H MPV 10.6 H Lymph # (Auto) 1.23 L RBC Morphology Poikilocytosis Anisocytosis ESR 69 H Creatinine 1.8 H Glucose 196 H Uric Acid 11.9 H Calcium 8.3 L Lactate Dehydrogenase 323 H C-Reactive Protein 4.90 H NT-Pro-B Natriuret Pep Total Protein 5.7 L Albumin 2.7 L Albumin/Globulin Ratio 0.9 L Procalcitonin 09/09/21 09/09/21 09/09/21 16:40 16:40 16:40 RBC Hgb Hct MCH MCHC RDW MPV Lymph # (Auto) RBC Morphology Poikilocytosis Anisocytosis ESR Creatinine Glucose Uric Acid Calcium Lactate Dehydrogenase C-Reactive Protein 4.60 H NT-Pro-B Natriuret Pep 4019.0 H Total Protein Albumin Albumin/Globulin Ratio Procalcitonin 0.13 H 09/09/21 09/09/21 16:40 16:40 RBC 3.62 L Hgb 9.4 L Hct 30.7 L MCH MCHC 30.6 L RDW 16.1 H MPV 10.9 H Lymph # (Auto) RBC Morphology Abnormal A Poikilocytosis 2+ A Anisocytosis 2+ A ESR Creatinine 2.1 H Glucose 187 H Uric Acid Calcium Lactate Dehydrogenase C-Reactive Protein NT-Pro-B Natriuret Pep Total Protein Albumin Albumin/Globulin Ratio Procalcitonin Meds: Medications Acetaminophen (Acetaminophen 325 Mg Tablet) 650 mg PO Q6HP PRN; Protocol PRN Reason: Per Pain Protocol/Fever > 101 Albuterol/Ipratropium (Ipratropium/Albuterol 3 Ml Ampul.Neb) 3 ml NEB Q8H [facility] Last Admin: 09/09/21 23:36 Dose: 3 ml Documented by: Budesonide (Budesonide 0.5 Mg/2 Ml Ampul.Neb) 0.5 mg NEB Q12 [facility] Last Admin: 09/09/21 23:36 Dose: 0.5 mg Documented by: Dextrose (Dextrose 50% 50 Ml Vial) 0 ml IV UD PRN PRN Reason: Hypoglycemia Diagnostic Test (Pha) (Accu-Chek 1 Each Strip) 1 each FS ACHS [facility] Last Admin: 09/10/21 08:14 Dose: 1 each Documented by: Docusate Sodium (Docusate Sodium 100 Mg Capsule) 100 mg PO BID [facility] Last Admin: 09/10/21 08:13 Dose: 100 mg Documented by: Gabapentin (Gabapentin 300 Mg Capsule) 300 mg PO TID [facility] Last Admin: 09/10/21 08:13 Dose: 300 mg Documented by: Glucose (Dextrose 31 Gm Oral.Susp) 15 gm PO PRN PRN PRN Reason: Hypoglycemia Potassium Chloride 40 meq/ (Dextrose) 520 mls @ 130 mls/hr IV UD PRN PRN Reason: Potassium < 3 Magnesium Sulfate (Magnesium Sulfate) 2 gm in 50 mls @ 50 mls/hr IV UD PRN PRN Reason: Magnesium </= 1.6 Ceftriaxone Sodium 2 gm/ (Dextrose) 50 mls @ 100 mls/hr IV Q24H [facility]; Protocol Last Admin: 09/09/21 23:26 Dose: Not Given Documented by: Azithromycin 500 mg/ Dextrose 250 mls @ 250 mls/hr IV Q24H [facility]; Protocol Stop: 09/11/21 23:13 Last Admin: 09/09/21 23:30 Dose: Not Given Documented by: Insulin Glargine (Insulin Glargine, Human 1 Unit/0.01 Ml) 40 unit SQ QDAY [facility] Last Admin: 09/10/21 08:13 Dose: 40 unit Documented by: Insulin Human Lispro (Insulin Lispro 1 Unit/0.01 Ml Unit) 0 unit SQ ACHS [facility]; Protocol Last Admin: 09/10/21 08:13 Dose: 4 unit Documented by: Labetalol HCl (Labetalol 5 Mg/Ml Ml) 0 mg IV Q2HP PRN PRN Reason: Hypertension Metoprolol Succinate (Metoprolol Succinate 50 Mg Tab.Xl.24h) 50 mg PO BID [facility] Last Admin: 09/10/21 08:12 Dose: 50 mg Documented by: Metoprolol Tartrate (Metoprolol Tartrate 5 Mg/5 Ml Vial) 5 mg IV Q2HP PRN PRN Reason: Tachyarrhythmias HR>110 Ondansetron HCl (Ondansetron 4 Mg/2 Ml Vial) 4 mg IV Q4HP PRN PRN Reason: Nausea And Vomiting Pantoprazole Sodium (Pantoprazole 40 Mg Tablet) 40 mg PO QAMAC [facility] Last Admin: 09/10/21 08:12 Dose: 40 mg Documented by: Polyethylene Glycol (Polyethylene Glycol 3350 17 Gm Packet) 17 gm PO DAILYP PRN PRN Reason: Constipation Potassium Chloride (Potassium Chloride 20 Meq Tablet) 40 meq PO UD PRN PRN Reason: Potssium is 3-3.5 Potassium Chloride (Potassium Chloride 20 Meq Tablet) 40 meq PO UD PRN PRN Reason: Potassium < 3 Rivaroxaban (Rivaroxaban 15 Mg Tablet) 15 mg PO DAILY [facility] Last Admin: 09/10/21 08:12 Dose: 15 mg Documented by: Senna (Sennosides 1 Tablet) 2 tab PO DAILYP PRN PRN Reason: Constipation Sodium Chloride (0.9 % Sodium Chloride 10 Ml Syringe) 10 ml IV Q8 [facility] Last Admin: 09/10/21 08:14 Dose: 10 ml Documented by: A/P Narrative A/P Narrative: A: *Acute hypoxic respiratory failure: 2/2 pneumonia and COPD +?post-covid lung -on 4L NC *CAP: *AECOPD: *Generalized weakness/deconditioning: *DM w/neuropathy: *CKD III: *Anemia, chronic: *AFib: Xarelto/BB *HTN/HLD: *GERD: *Obesity: BMI 36 P: -Rocephin/azithromycin, pending SC -RVP/myco/strep pending -steroids(wean)/nebs -nebs, IS/Acapella -Continue home BB, hold ACEI/Lasix and follow-up renal function -basal and SSI -PT/OT -CM for placement needs -ppx: Xarelto / home PPI DNR Time Spent With Patient Time: Total time spent is greater than 50% in coordination of care (as documented) at patient's floor/unit and/or counseling patient: QUALITY VTE Deep Vein Thrombosis/Pulmonary Embolism Present on Admission: No
[2021-09-10] MEDS: cefTRIAXone 2 GM in DEXTROSE 5% IN WATER 50 ML IV SCH (08:47)
[2021-09-10] MEDS: AZITHROMYCIN 500 MG in DEXTROSE 5% IN WATER 250 ML IV SCH (09:25)
[2021-09-10] MEDS ORDERED: guaiFENesin 600 MG TAB.SR.12H PO ONE (09:29)
[2021-09-10] MEDS: guaiFENesin 600 MG TAB.SR.12H PO SCH (22:40)
[2021-09-10] MEDS: methylPREDNISolone SOD SUCC 125 MG/2 ML VIAL IV SCH (22:40)
[2021-09-11] MEDS: 0.9 % SODIUM CHLORIDE 10 ML SYRINGE IV SCH (04:40)
[2021-09-11] MEDS: BUDESONIDE 0.5 MG/2 ML AMPUL.NEB NEB SCH (07:05)
[2021-09-11] MEDS: IPRATROPIUM/ALBUTEROL 3 ML AMPUL.NEB NEB SCH (07:05)
[2021-09-11] MEDS: PANTOPRAZOLE 40 MG TABLET PO SCH (07:22)
[2021-09-11] MEDS: INSULIN LISPRO 1 UNIT/0.01 ML UNIT SQ SCH (07:22)
[2021-09-11] MEDS: METOPROLOL SUCCINATE 50 MG TAB.XL.24H PO SCH (08:17)
[2021-09-11] MEDS: RIVAROXABAN 15 MG TABLET PO SCH (08:17)
[2021-09-11] MEDS: GABAPENTIN 300 MG CAPSULE PO SCH (08:17)
[2021-09-11] MEDS: guaiFENesin 600 MG TAB.SR.12H PO SCH (08:17)
[2021-09-11] MEDS: INSULIN GLARGINE, HUMAN 1 UNIT/0.01 ML SQ SCH (08:17)
[2021-09-11] MEDS: DOCUSATE SODIUM 100 MG CAPSULE PO SCH (08:18)
[2021-09-11] MEDS: methylPREDNISolone SOD SUCC 125 MG/2 ML VIAL IV SCH (08:20)
--- NOTE | 2021-09-11 08:53 | Internal Med Progress Note ---
SUBJECTIVE Subjective Patient information: Note initiated : 09/11/21 at 8:50 am Service Date, if different from initiated Date: [] Patient: Juventino Lopez a 76 y/o M admitted on 09/09/21 for SOB, weakness. Chief Complaint: [] Interval history: History of present illness: Mr. Lopez is a 76 year old M Presents to the ED with increased shortness of breath and worsening cough. Really noticed shortness of breath when he got up today to go the bathroom and his family members brought him in. He has had increasing shortness of breath over the past few days. He has a chronic cough but his cough has been worsening and it is mildly productive. He was at [facility] for 4 days in July for Covid pneumonia did not require oxygen at home. Denies any fevers but has chills. Home health nurse recorded a oxygen saturation of 77%. Has been increasingly weak lately. Did receive a breathing treatment was some subjective improvement. Was on 5 L nasal cannula in the ED down to 2-1/2. CT of the chest was read as bilateral bronchitis and bronchial pneumonia. He had a CTA of the chest done August 18 showed no PE. 3/4 Patient feeling a little bit better. Feels like he is able to cough up more phlegm. Awaiting strep urine antigen. Decrease his oxygen at 3-1/2 L this morning. Shortness of breath gradually improving. 3/5 Patient doing better today feeling much better shortness of breath much improved occasional cough. Patient wants to go home. Down to 2 L with sats 93%. Was on room air for most of the night. I said that if he was able to get up and ambulate and feel close to baseline then we would get respiratory therapy to assess him home oxygen for COPD and we can likely send him home today. Review of Systems: denies headache/fever/chills/nausea/vomiting/chest or abdominal pain/diarrhea. Otherwise see above. Constitutional Vitals: Vital Signs Temp Pulse Resp BP Pulse Ox 96.7 F L 70 20 143/60 93 09/11/21 07:39 09/11/21 07:39 09/11/21 07:39 09/11/21 07:39 09/11/21 07:39 Period Temp Pulse Resp BP Sys/Smith Pulse Ox Last 24 Hr 96.7 F-98.6 F 56-74 14-24 113-150/40-63 88-98 Intake and Output 09/10/21 09/11/21 09/11/21 21:59 05:59 13:59 Intake Total 240 400 240 Output Total 200 600 Balance 40 -200 240 Weight 110.994 kg Intake & Output: Intake & Output 09/10/21 09/11/21 09/11/21 21:59 05:59 13:59 Intake Total 240 400 240 Output Total 200 600 Balance 40 -200 240 Weight 110.994 kg Intake: Oral 240 400 240 Output: Void Amount 200 600 Other: Meal Dinner Breakfast Percent of Meal Consumed 100% 100% Feeding Ability Independent Independent Urine Appearance Clear Clear Urine Color Bright Yellow Bright Yellow Stool Size Moderate Stool Color Brown Stool Consistency Loose # Bowel Movements 1 0 Exam: General: Alert, Awake, No acute Distress, obese Eyes/N/T: EOMI, Head/Neck: neck supple, CV: RRR, No murmurs, Pulm: mild Rhonchi b/l, no wheezing Abd: soft, nontender, +BS x4 Ext: no clubbing/cyanosis/edema Neuro: Alert, no focal deficits, moves all extremities, Skin: warm/dry OBJ DATA Labs CBC & Chem 7: 09/10/21 05:12 09/10/21 05:12 Labs: Abnormal Lab Results 09/10/21 09/10/21 09/09/21 05:12 05:12 16:40 RBC 3.30 L Hgb 8.2 L Hct 28.3 L MCH 24.8 L MCHC 29.0 L RDW 16.0 H MPV 10.6 H Lymph # (Auto) 1.23 L RBC Morphology Poikilocytosis Anisocytosis ESR 69 H Creatinine 1.8 H Glucose 196 H Uric Acid 11.9 H Calcium 8.3 L Lactate Dehydrogenase 323 H C-Reactive Protein 4.90 H NT-Pro-B Natriuret Pep Total Protein 5.7 L Albumin 2.7 L Albumin/Globulin Ratio 0.9 L Procalcitonin 09/09/21 09/09/21 09/09/21 16:40 16:40 16:40 RBC Hgb Hct MCH MCHC RDW MPV Lymph # (Auto) RBC Morphology Poikilocytosis Anisocytosis ESR Creatinine Glucose Uric Acid Calcium Lactate Dehydrogenase C-Reactive Protein 4.60 H NT-Pro-B Natriuret Pep 4019.0 H Total Protein Albumin Albumin/Globulin Ratio Procalcitonin 0.13 H 09/09/21 09/09/21 16:40 16:40 RBC 3.62 L Hgb 9.4 L Hct 30.7 L MCH MCHC 30.6 L RDW 16.1 H MPV 10.9 H Lymph # (Auto) RBC Morphology Abnormal A Poikilocytosis 2+ A Anisocytosis 2+ A ESR Creatinine 2.1 H Glucose 187 H Uric Acid Calcium Lactate Dehydrogenase C-Reactive Protein NT-Pro-B Natriuret Pep Total Protein Albumin Albumin/Globulin Ratio Procalcitonin Meds: Medications Acetaminophen (Acetaminophen 325 Mg Tablet) 650 mg PO Q6HP PRN; Protocol PRN Reason: Per Pain Protocol/Fever > 101 Albuterol/Ipratropium (Ipratropium/Albuterol 3 Ml Ampul.Neb) 3 ml NEB Q8H [facility] Last Admin: 09/11/21 07:05 Dose: 3 ml Documented by: Budesonide (Budesonide 0.5 Mg/2 Ml Ampul.Neb) 0.5 mg NEB Q12 [facility] Last Admin: 09/11/21 07:05 Dose: 0.5 mg Documented by: Dextrose (Dextrose 50% 50 Ml Vial) 0 ml IV UD PRN PRN Reason: Hypoglycemia Diagnostic Test (Pha) (Accu-Chek 1 Each Strip) 1 each FS ACHS [facility] Last Admin: 09/11/21 07:16 Dose: 1 each Documented by: Docusate Sodium (Docusate Sodium 100 Mg Capsule) 100 mg PO BID [facility] Last Admin: 09/11/21 08:18 Dose: 100 mg Documented by: Doxazosin Mesylate (Doxazosin 4 Mg Tablet) 8 mg PO DAILY [facility] Last Admin: 09/11/21 08:17 Dose: 8 mg Documented by: Gabapentin (Gabapentin 300 Mg Capsule) 300 mg PO TID [facility] Last Admin: 09/11/21 08:17 Dose: 300 mg Documented by: Glucose (Dextrose 31 Gm Oral.Susp) 15 gm PO PRN PRN PRN Reason: Hypoglycemia Guaifenesin (Guaifenesin 600 Mg Tab.Sr.12h) 600 mg PO BID [facility] Stop: 09/12/21 09:01 Last Admin: 09/11/21 08:17 Dose: 600 mg Documented by: Potassium Chloride 40 meq/ (Dextrose) 520 mls @ 130 mls/hr IV UD PRN PRN Reason: Potassium < 3 Magnesium Sulfate (Magnesium Sulfate) 2 gm in 50 mls @ 50 mls/hr IV UD PRN PRN Reason: Magnesium </= 1.6 Last Infusion: 09/10/21 11:36 Dose: Infused Documented by: Ceftriaxone Sodium 2 gm/ (Dextrose) 50 mls @ 100 mls/hr IV Q24H [facility]; Protocol Last Infusion: 09/10/21 09:24 Dose: Infused Documented by: Azithromycin 500 mg/ Dextrose 250 mls @ 250 mls/hr IV Q24H [facility]; Protocol Stop: 09/11/21 23:13 Last Infusion: 09/10/21 10:29 Dose: Infused Documented by: Insulin Glargine (Insulin Glargine, Human 1 Unit/0.01 Ml) 40 unit SQ QDAY [facility] Last Admin: 09/11/21 08:17 Dose: 40 unit Documented by: Insulin Human Lispro (Insulin Lispro 1 Unit/0.01 Ml Unit) 0 unit SQ [facility]; P rotocol Last Admin: 09/11/21 07:22 Dose: 8 unit Documented by: Labetalol HCl (Labetalol 5 Mg/Ml Ml) 0 mg IV Q2HP PRN PRN Reason: Hypertension Methylprednisolone Sodium Succinate (Methylprednisolone Sod Succ 125 Mg/2 Ml Vial) 62.5 mg IV Q12 [facility] Last Admin: 09/11/21 08:20 Dose: 62.5 mg Documented by: Metoprolol Succinate (Metoprolol Succinate 50 Mg Tab.Xl.24h) 50 mg PO BID [facility] Last Admin: 09/11/21 08:17 Dose: 50 mg Documented by: Metoprolol Tartrate (Metoprolol Tartrate 5 Mg/5 Ml Vial) 5 mg IV Q2HP PRN PRN Reason: Tachyarrhythmias HR>110 Ondansetron HCl (Ondansetron 4 Mg/2 Ml Vial) 4 mg IV Q4HP PRN PRN Reason: Nausea And Vomiting Pantoprazole Sodium (Pantoprazole 40 Mg Tablet) 40 mg PO QAMAC [facility] Last Admin: 09/11/21 07:22 Dose: 40 mg Documented by: Polyethylene Glycol (Polyethylene Glycol 3350 17 Gm Packet) 17 gm PO DAILYP PRN PRN Reason: Constipation Potassium Chloride (Potassium Chloride 20 Meq Tablet) 40 meq PO UD PRN PRN Reason: Potssium is 3-3.5 Potassium Chloride (Potassium Chloride 20 Meq Tablet) 40 meq PO UD PRN PRN Reason: Potassium < 3 Rivaroxaban (Rivaroxaban 15 Mg Tablet) 15 mg PO DAILY [facility] Last Admin: 09/11/21 08:17 Dose: 15 mg Documented by: Senna (Sennosides 1 Tablet) 2 tab PO DAILYP PRN PRN Reason: Constipation Sodium Chloride (0.9 % Sodium Chloride 10 Ml Syringe) 10 ml IV Q8 [facility] Last Admin: 09/11/21 04:40 Dose: 10 ml Documented by: A/P Narrative A/P Narrative: A: *Acute hypoxic respiratory failure: 2/2 pneumonia and COPD +?post-covid lung -down to 0-2L NC *CAP: -rvp/strep neg *AECOPD: *Generalized weakness/deconditioning: *DM w/neuropathy: *CKD III: *Anemia, chronic: *AFib: Xarelto/BB *HTN/HLD: *GERD: *Obesity: BMI 36 P: -Rocephin/azithromycin, pending SC -RVP/myco/strep pending -steroids(wean)/nebs -nebs, IS/Acapella -Continue home BB, hold ACEI/Lasix and follow-up renal function -basal and SSI -PT/OT -CM for placement needs -ppx: Xarelto / home PPI DNR Time Spent With Patient Time: Total time spent is greater than 50% in coordination of care (as documented) at patient's floor/unit and/or counseling patient: QUALITY VTE Deep Vein Thrombosis/Pulmonary Embolism Present on Admission: No
[2021-09-11] MEDS ORDERED: methylPREDNISolone SOD SUCC 40 MG/ML VIAL IV SCH (09:00)
[2021-09-11] MEDS ORDERED: INSULIN GLARGINE, HUMAN 1 UNIT/0.01 ML SQ SCH (09:00)
[2021-09-11] MEDS ORDERED: DOXAZOSIN 4 MG TABLET PO SCH (09:00)
[2021-09-11] MEDS: cefTRIAXone 2 GM in DEXTROSE 5% IN WATER 50 ML IV SCH (09:23)
[2021-09-11] MEDS ORDERED: INSULIN GLARGINE, HUMAN 1 UNIT/0.01 ML SQ ONE (09:45)
[2021-09-11] MEDS: AZITHROMYCIN 500 MG in DEXTROSE 5% IN WATER 250 ML IV SCH (10:23)
--- NOTE | 2021-09-11 11:11 | Discharge Summary ---
Discharge Provider Provider Patient information: Note initiated : 09/11/21 at 11:09 am Service Date, if different from initiated Date: [] Patient: Juventino Lopez 76 y/o M admitted on 09/09/21 for SOB, weakness. Chief Complaint: [] Date of admission: 09/09/21 21:49 Discharge date: 09/11/21 Primary care physician: Tutu Greenberg PA-C Consults: 09/09/21 Consult to Physician [CONS] Stat Comment: Consulting Provider: Jose Suazo Reason For Exam: Physician to Consult Discharge Meds Discharge Medications Home Medications cholecalciferol (vitamin D3) 50 mcg (2,000 unit) capsule 2,000 unit PO DAILY [History Confirmed 09/09/21 Last Taken 09/09/21 09:00] fluticasone 250 mcg-salmeterol 50 mcg/dose blistr powdr for inhalation (Advair Diskus) 1 inh INHALATION Q12H #60 each 10/31/18 [Rx Confirmed 09/09/21 Last Taken 11/15/18] rivaroxaban 15 mg tablet 15 mg PO QDAY 90 Days #90 tab 12/22/20 [Rx Confirmed 09/10/21 Last Taken 09/09/21 09:00] lisinopril 40 mg tablet 40 mg PO QDAY 90 Days #90 tab 03/01/21 [Rx Confirmed 09/09/21 Last Taken 09/09/21 09:00] albuterol sulfate 90 mcg/actuation aerosol inhaler (Ventolin HFA) 2 puff INHALATION Q6H PRN #18 g 05/31/21 [Rx Confirmed 09/09/21 Last Taken Unknown] insulin aspart U-100 100 unit/mL (3 mL) subcutaneous pen (Novolog Flexpen U-100 Insulin aspart) See Rx Instructions SUB-Q .COMPLEX #15 ml 06/01/21 [Rx Confirmed 09/10/21 Last Taken 09/08/21 21:00] liraglutide 0.6 mg/0.1 mL (18 mg/3 mL) subcutaneous pen injector (Victoza 3-Yordy) 1.8 mg (0.3 mL) SUB-Q QDAY #9 ml 06/21/21 [Rx Confirmed 09/10/21 Last Taken 09/08/21 09:00] gabapentin 300 mg capsule 300 mg PO TID 30 Days #90 cap 07/05/21 [Rx Confirmed 09/09/21 Last Taken 09/09/21 09:00] pantoprazole 40 mg tablet,delayed release 40 mg PO QDAY 90 Days #90 tab 07/12/21 [Rx Confirmed 09/10/21 Last Taken 09/09/21 09:00] 3 wheeled walker #1 ea 08/18/21 [Rx Confirmed 09/09/21 Last Taken Unknown] furosemide 40 mg tablet 40 mg PO QAM #90 tab 08/18/21 [Rx Confirmed 09/09/21 Last Taken 09/09/21 09:00] insulin glargine 100 unit/mL (3 mL) subcutaneous pen (Lantus Solostar U-100 Insulin) 40 unit SUB-Q QHS ml 08/18/21 [History Confirmed 09/10/21 Last Taken 09/08/21 21:00] metoprolol succinate 50 mg tablet,extended release 24 hr 50 mg PO BID tab 08/18/21 [History Confirmed 09/09/21 Last Taken 09/09/21 09:00] simvastatin 40 mg tablet 40 mg PO QDAY 90 Days #90 tab 09/06/21 [Rx Confirmed 09/10/21 Last Taken 09/09/21 09:00] doxazosin 8 mg tablet 1 tab PO QDAY 09/10/21 [History Confirmed 09/10/21 Last Taken 09/09/21 09:00] cefdinir 300 mg capsule 300 mg PO BID #6 cap 09/11/21 [Rx Last Taken Unknown] prednisone 10 mg tablet 40 mg PO QDAY #1 tab 09/11/21 [Rx Last Taken Unknown] COURSE Hospital Course Hospital course: History of present illness: Mr. Lopez is a 76 year old M Presents to the ED with increased shortness of breath and worsening cough. Really noticed shortness of breath when he got up today to go the bathroom and his family members brought him in. He has had increasing shortness of breath over the past few days. He has a chronic cough but his cough has been worsening and it is mildly productive. He was at [facility] for 4 days in July for Covid pneumonia did not require oxygen at home. Denies any fevers but has chills. Home health nurse recorded a oxygen saturation of 77%. Has been increasingly weak lately. Did receive a breathing treatment was some subjective improvement. Was on 5 L nasal cannula in the ED down to 2-1/2. CT of the chest was read as bilateral bronchitis and bronchial pneumonia. He had a CTA of the chest done August 18 showed no PE. 3/4 Patient feeling a little bit better. Feels like he is able to cough up more phlegm. Awaiting strep urine antigen. Decrease his oxygen at 3-1/2 L this morning. Shortness of breath gradually improving. 3/5 Patient doing better today feeling much better shortness of breath much improved occasional cough. Patient wants to go home. Down to 2 L with sats 93%. Was on room air for most of the night. I said that if he was able to get up and ambulate and feel close to baseline then we would get respiratory therapy to assess him home oxygen for COPD and we can likely send him home today. A: *Acute hypoxic respiratory failure: 2/2 pneumonia and COPD +?post-covid lung *CAP: *AECOPD: *Generalized weakness/deconditioning: *DM w/neuropathy: *CKD III: *Anemia, chronic: *AFib: Xarelto/BB *HTN/HLD: *GERD: *Obesity: BMI 36 P: -Abx course -steroid taper Discharge diagnosis: Acute hypoxic respite failure COPD pneumonia Secondary discharge diagnosis: Generalized weakness deconditioning diabetes chronic kidney disease chronic anemia atrial fibrillation hypertension obesity Time Spent with Patient Time attestation: Total time spent providing and/or coordinating discharge services: Time spent: Greater than 30 minutes EXAM Constitutional Vitals: Temp Pulse Resp BP Pulse Ox 96.7 F L 70 20 143/60 93 09/11/21 07:39 09/11/21 07:39 09/11/21 07:39 09/11/21 07:39 09/11/21 07:39 Discharge Data Data Completed and Pending Labs on day of discharge: Labs from last 24 hours 09/09/21 11:25 Ur Strep pneumoniae Ag Negative Discharge Plan Patient/Caregiver Discharge Instructions Activity: increase activity as tolerated Diet: Consistent Carbohydrate Activity Restrictions/Additional Instructions: Patient require home oxygen for COPD. Prescriptions: New cefdinir 300 mg capsule 300 mg PO BID Qty: 6 0RF prednisone 10 mg tablet 40 mg PO QDAY Qty: 1 0RF Rx Instructions: 40mg once daily for 2 days then 20mg daily x3 days then 10mg x3 days then 5mg x2 days and stop Continued lisinopril 40 mg tablet 40 mg PO QDAY 90 Days Qty: 90 1RF albuterol sulfate [Ventolin HFA] 90 mcg/actuation HFA aerosol inhaler 2 puff INHALATION Q6H PRN (Reason: shortness of breath or wheezing) Qty: 18 1RF Novolog Flexpen U-100 Insulin 100 unit/mL (3 mL) insulin pen See Rx Instructions unit SUB-Q .COMPLEX Qty: 15 1RF Rx Instructions: inject as per insulin sliding scale protocol max daily dose of 40 units Victoza 3-Yordy 0.6 mg/0.1 mL (18 mg/3 mL) pen injector 1.8 mg SUB-Q QDAY Qty: 9 3RF gabapentin 300 mg capsule 300 mg PO TID 30 Days Qty: 90 2RF pantoprazole 40 mg tablet,delayed release (DR/EC) 40 mg PO QDAY 90 Days Qty: 90 1RF simvastatin 40 mg tablet 40 mg PO QDAY 90 Days Qty: 90 1RF fluticasone propion-salmeterol [Advair Diskus] 250-50 mcg/dose blister with device 1 inh INHALATION Q12H Qty: 60 2RF rivaroxaban 15 mg tablet 15 mg PO QDAY 90 Days Qty: 90 3RF Lantus Solostar U-100 Insulin 100 unit/mL (3 mL) insulin pen 40 unit SUB-Q QHS 0RF Label Comments: take at night metoprolol succinate 50 mg tablet extended release 24 hr 50 mg PO BID 0RF furosemide 40 mg tablet 40 mg PO QAM Qty: 90 1RF Rx Instructions: to prevent swelling (DME) 3 wheeled walker See Rx Instructions .Route .MEDSUPPLY Qty: 1 0RF Rx Instructions: As directed cholecalciferol (vitamin D3) 2,000 UNIT capsule 2,000 unit PO DAILY 0RF doxazosin 8 mg tablet 1 tab PO QDAY 0RF Follow Up Plan Follow up with: Tutu Greenberg PA-C [Primary Care Provider] - Patient Disposition: Home, Self-Care Prognosis: Fair Overall status at discharge: patient is progressing back to baseline Discharge Orders: Discharge Order (Routine); Ordered 09/11/21 Ordered By: Jose Suazo [facility] VTE Deep Vein Thrombosis/Pulmonary Embolism Present on Admission: No
[2021-09-11] MEDS ORDERED: INSULIN LISPRO 1 UNIT/0.01 ML UNIT SQ SCH (12:00)
[2021-09-13 13:25] LABS: M. Pneumoniae IGG 1.49
== END 2021-09-11 13:30 | disposition home or self-care (01) | DRG 194 ==
LOC: ED 16:18 → MEDSUR 21:49
PROVIDERS: ADMIT Internal Medicine; ATTEND Internal Medicine

== ENCOUNTER 2021-09-29 01:27 | Inpatient (IN) ==
--- NOTE | 2021-09-29 01:56 | Emergency Department Note ---
HPI General Chief complaint: Altered Mental Status Stated complaint: AMS, low BG Time Seen by Provider: 09/29/21 01:44 Source: EMS Mode of arrival: EMS Limitations: altered mental status History of Present Illness HPI Narrative: Narrative: 76 yo M w/ complex PMH including AF, COPD on home O2, DM2, HTN, and recent admissions for PNA and previously for COVID p/w generalized weakness. Per EMS they were called out for weakness. They arrived and found him to have NFD but was too weak to get up. They had to give full assist to get him onto their gurney. They checked his FS which was 70. A dose of PO glucose had no effect prompting them to start D10. They then transported here. Family arrived and noted that he has not been eating/drinking well recently and that 70 is quite low for him, his blood sugar typically runs in the 200s. He has not had any change in his insulin, no recent F/C, cough/SOB, N/V/D, or other Sx. Related Data Home Medications Medication Instructions Recorded Confirmed cholecalciferol (vitamin D3) 50 2,000 unit PO DAILY 05/17/18 09/09/21 mcg (2,000 unit) capsule insulin glargine 100 unit/mL (3 40 unit SUB-Q QHS ml 08/18/21 09/10/21 mL) subcutaneous pen (Lantus Solostar U-100 Insulin) metoprolol succinate 50 mg 50 mg PO BID tab 08/18/21 09/09/21 tablet,extended release 24 hr doxazosin 8 mg tablet 1 tab PO QDAY 09/10/21 09/10/21 Previous Rx's Medication Instructions Recorded fluticasone 250 mcg-salmeterol 50 1 inh INHALATION Q12H #60 each 10/31/18 mcg/dose blistr powdr for inhalation (Advair Diskus) rivaroxaban 15 mg tablet 15 mg PO QDAY 90 Days #90 tab 12/22/20 albuterol sulfate 90 mcg/actuation 2 puff INHALATION Q6H PRN #18 g 05/31/21 aerosol inhaler (Ventolin HFA) insulin aspart U-100 100 unit/mL See Rx Instructions SUB-Q .COMPLEX 06/01/21 (3 mL) subcutaneous pen (Novolog #15 ml Flexpen U-100 Insulin aspart) liraglutide 0.6 mg/0.1 mL (18 mg/3 1.8 mg (0.3 mL) SUB-Q QDAY #9 ml 06/21/21 mL) subcutaneous pen injector (Victoza 3-Yordy) pantoprazole 40 mg tablet,delayed 40 mg PO QDAY 90 Days #90 tab 07/12/21 release 3 wheeled walker #1 ea 08/18/21 furosemide 40 mg tablet 40 mg PO QAM #90 tab 08/18/21 simvastatin 40 mg tablet 40 mg PO QDAY 90 Days #90 tab 09/06/21 cefdinir 300 mg capsule 300 mg PO BID #6 cap 09/11/21 prednisone 10 mg tablet 40 mg PO QDAY #1 tab 09/11/21 lisinopril 40 mg tablet 40 mg PO QDAY 90 Days #90 tab 09/20/21 gabapentin 300 mg capsule 300 mg PO TID 30 Days #90 cap 09/23/21 Allergies Allergy/AdvReac Type Severity Reaction Status Date / Time ciprofloxacin AdvReac Intermediate Itching Verified 08/18/21 10:58 Review of Systems ROS ROS Narrative: Narrative: All systems ED: reviewed and negative except as stated. [facility] Narrative Patient History Narrative: Narrative: Medical/Surgical/Family History All Active Problems (Updated 09/29/21 @ 04:26 by Guille Barney MD) Hypoxia (Acute) Pneumonia (Acute) Generalized weakness (Acute) Pneumonia (Acute) Acute dehydration (Acute) IKE (acute kidney injury) (Acute) Pneumonia due to COVID-19 virus (Chronic) History of severe acute respiratory syndrome coronavirus 2 (SARS-CoV-2) disease (Chronic) Iron deficiency anemia (Acute) Pacemaker (Chronic) Medicare annual wellness visit, initial (Acute) Obesity (Chronic) Chronic anticoagulation (Chronic) Sick sinus syndrome (Chronic) MRI safe cardiac pacemaker in situ (Chronic) Pacemaker (Chronic) Esophageal stenosis (Chronic) History of colonoscopy (Chronic 11/09/17) History of esophagogastroduodenoscopy (EGD) (Chronic 04/18/18) Diabetic neuropathy (Chronic) Status post surgery (Chronic) H/O colonoscopy (Chronic 02/10/09) Hx of cataract surgery (Chronic) S/P ablation of atrial fibrillation (Chronic 09/24/13) Vitamin D deficiency (Chronic) Peripheral neuropathy (Chronic) Osteoarthrosis (Chronic) Severe obesity (Chronic) Hypertension, essential (Chronic) Hyperlipidemia (Chronic) Hyperkalemia (Chronic 12/26/11) Eczema (Chronic) DMII (diabetes mellitus, type 2) (Chronic) COPD (chronic obstructive pulmonary disease) (Chronic) Chronic kidney disease, stage 3 (Chronic) Atrial fibrillation (Chronic) Medical History Alkalosis Atrial fibrillation Atrial flutter Gonzalez's palsy Bradycardia Chronic anticoagulation Chronic kidney disease, stage 3 COPD (chronic obstructive pulmonary disease) Diabetic neuropathy DMII (diabetes mellitus, type 2) Eczema Esophageal stenosis History of severe acute respiratory syndrome coronavirus 2 (SARS-CoV-2) disease July 2021 Hyperkalemia (12/26/11) Hyperlipidemia Hypertension, essential Iron deficiency anemia Medicare annual wellness visit, initial MRI safe cardiac pacemaker in situ 03/2019 Obesity Osteoarthrosis Otitis externa due to herpes zoster (03/28/11) Pacemaker Paroxysmal supraventricular tachycardia Peripheral neuropathy Pneumonia due to COVID-19 virus July 2021 Severe obesity Sick sinus syndrome Uncontrolled type 2 diabetes mellitus Vitamin D deficiency Surgical History H/O colonoscopy (02/10/09) History of colonoscopy (11/09/17) History of esophagogastroduodenoscopy (EGD) (04/18/18) 05/25/17 Hx of cataract surgery 2009- bilateral Pacemaker March 2019 S/P ablation of atrial fibrillation (09/24/13) Ablation of aberrant conduction pathway-atrial flutter Status post surgery Repair of nasal fracture Family History Mother Type 2 diabetes mellitus Essential hypertension Social History Smoking Status: Former smoker Alcohol Intake Frequency: a few times a month Substance Use: does not use Exam Narrative Narrative: Narrative: General Limitations: altered mental status General appearance: Present alert and in no apparent distress Head Head: Present atraumatic and normocephalic ENT ENT: Present normal oropharynx and mucous membranes dry Chest Chest: Present normal inspection and symmetric chest wall rise Respiratory Respiratory: Present normal lung sounds bilaterally; Absent respiratory distress, accessory muscle use or decreased breath sounds Cardiovascular Cardiovascular: Present regular rate, normal rhythm, +S1, +S2 and other (2+ B/L radial pulses); Absent systolic murmur or diastolic murmur Adbominal Abdominal: Present soft and normal bowel sounds; Absent distention or tenderness Extremities Extremities: Absent pedal edema Neurological Neurological: Present alert, oriented X3 (oriented to person and month) and other (no facial droop, tongue deviation, dysarthria, aphasia. Intact sensation over B/L face, all 4 extremities. 5/5 B/L malted milk masher. 5/5 B/L dorsiflexion/plantarflexion B/L ankles.) Psychiatric Psychiatric: Present normal affect Skin Skin: Present warm (WNL) and dry Course Vital Signs Vital signs: Vital Signs Temperature 97.3 F 09/29/21 01:27 Pulse Rate 82 09/29/21 01:27 Respiratory Rate 16 09/29/21 01:27 Blood Pressure 97/48 09/29/21 01:27 Pulse Oximetry (%) 92 09/29/21 01:27 Temperature 97.2 F 09/29/21 06:39 Pulse Rate 64 09/29/21 06:39 Respiratory Rate 22 09/29/21 06:39 Blood Pressure 131/57 09/29/21 06:39 Pulse Oximetry (%) 96 09/29/21 06:39 MDM MDM Narrative Medical decision making narrative: Narrative: 76 yo M w/ complex PMH including AF, COPD on home O2, DM2, HTN, and recent admissions for PNA and previously for COVID p/w generalized weakness. DDX - CVA, infectious process, dehydration, metabolic/electrolyte d/o, endocrine d/o, anemia Pt presented clinically stable, in NAD. His BP was in the 90s but he was mentating well, was well perfused, nontoxic. I started IVF on arrival. He had N FD on exam and CVA was unlikely. There was a report of a fall w/ head impact a few days ago but in confirming w/ his family he is not on anticoagulation. Given that the fall was one day ago and he was mentating well I saw no likelihood of a clinically significant ICH or skull Fx. CT head was not indicated. An infectious process was my main concern. CXR showed a likely LLL infiltrate. UA was negati ve, there was no evidence of cellulitis or INFORMATION TECHNOLOGY ASSOCIATE infection. I gave vanc and zosyn given his recent hospitalization. He did not have fever, leukocytosis, or elevation in lactate. Tachycardia could not be relied upon as a sepsis marker as he is on a B-isaias. Overall it was difficult to discern if this was sepsis or dehydration, or more likely, both. The CMP was notable for an elevation in Cr and BUN c/w prerenal injury. CBC was unremarkable. TSH and T4 were essentially WNL. He did have relative hypoglycemia but this was easily Tx'd w/ PO intake. He had no evidence of ischemia on EKG. Troponin was very slightly elevated but in the setting of IKE and clinically ACS was unlikely. Overall his evaluation was c/w PNA, dehydration and possible sepsis. He did well w/ abx and IVF. I d/w Dr Landeros who agreed for admission but felt that ICU was not required. He requested that I place bridge orders to the floor. Lab Data Result diagrams: 09/29/21 01:47 09/29/21 01:47 Labs: Lab Results 09/29/21 09/29/21 09/29/21 Range/Units 01:47 01:47 01:47 WBC 5.8 (4.5-11.0) K/mcL RBC 3.16 L (4.63-6.08) M/mcL Hgb 8.3 L (13.7-17.5) g/dL Hct 27.1 L (40.1-51.0) % MCV 85.8 (80.0-100.0) fL MCH 26.3 (26.0-34.0) pg MCHC 30.6 L (31.0-36.0) g/dL RDW 15.7 H (11.5-14.5) % Plt Count 254 (140-440) K/mcL MPV 11.5 H (7.4-10.4) fL Neut % (Auto) 77.3 (38.0-78.0) % Lymph % (Auto) 11.7 L (15.5-49.0) % Marion % (Auto) 8.9 (1.0-12.0) % Eos % (Auto) 1.4 (0.0-7.0) % Baso % (Auto) 0.7 (0.0-2.0) % Lymph # (Auto) 0.68 L (1.50-4.80) K/mcL Marion # (Auto) 0.52 (0.10-0.90) K/mcL Eos # (Auto) 0.08 (0.00-0.70) K/mcL Baso # (Auto) 0.04 (0.00-0.30) K/mcL Absolute Neutrophils 4.50 (1.80-8.00) K/mcL VBG Lactic Acid 1.5 (0.5-2.0) mmol/L Sodium 137 (133-145) mmol/L Potassium 4.3 (3.3-5.1) mmol/L Chloride 97 (96-108) mmol/L Carbon Dioxide 26 (22-30) mmol/L Anion Gap 14.0 (8.0-16.0) BUN 36 H (8-23) mg/dL Creatinine 2.4 H (0.7-1.2) mg/dL GFR Calculation 25 Glucose 147 H (70-105) mg/dL Calcium 8.9 (8.6-10.4) mg/dL Total Bilirubin 0.2 (0.1-1.0) mg/dL AST 12 (<40) U/L ALT 6 (<40) U/L Alkaline Phosphatase 56 (39-117) U/L Total Creatine Kinase 113 (24-195) U/L CK-MB (CK-2) 1.6 (<6.7) ng/mL Troponin T 0.04 H* (<0.03) ng/mL Total Protein 6.2 (5.9-8.4) gm/dL Albumin 3.1 L (3.2-5.2) gm/dL Globulin 3.1 (2.2-3.7) gm/dL Albumin/Globulin Ratio 1.0 (1.0-2.3) TSH 1.59 (0.27-5.01) uIU/mL Thyroxine (T4) 4.6 L (5.0-12.0) ug/dl ED POC Tests ED POC Tests: ANDREA - SARS Antigen Negative EKG Data EKG #1: EKG attestation: Yes I reviewed and interpreted this EKG. and Yes There are no EKG findings of acute coronary syndrome EKG results narrative: Sinus rate of 65 MN 149, QRS 120, QT 460 QTc 480 No STEMI, Brugada, Wellens, DeWinter waves Nonspecific IVCD Similar to previous EKG CC TIME Critical Care Time Attestation: Approximately 35 minutes of critical care time was used in order to assess and manage the high probability of imminent or life threatening deterioration to pulmonary, cardiovascular system which required my highest level of preparedness and interventions with frequent patient assessments. This time is excluding time spent on separately billable procedures. Discharge Plan Patient/Caregiver Discharge Instructions Pt seen by CORRECTIONAL COUNSELOR/CASE MANAGER/PA only: No Clinical Impression: Generalized weakness, Hyperlipidemia, Hypertension, essential, Atrial fibrillation, Pacemaker, Pneumonia, COPD (chronic obstructive pulmonary di sease), DMII (diabetes mellitus, type 2), Acute dehydration, IKE (acute kidney injury) Patient Disposition: Xfer As Inpt ([facility]) Discharge Date/Time: 09/29/21 06:47
[2021-09-29 02:49] LABS: Basophils # (Auto) 0.04 K/mcL (0.00-0.30); Basophils % (Auto) 0.7 % (0.0-2.0); Eosinophils # (Auto) 0.08 K/mcL (0.00-0.70); Eosinophils % (Auto) 1.4 % (0.0-7.0); Hematocrit 27.1 % (40.1-51.0); Hemoglobin 8.3 g/dL (13.7-17.5); Lymphocytes # (Auto) 0.68 K/mcL (1.50-4.80); Lymphocytes % (Auto) 11.7 % (15.5-49.0); Mean Cell Volume 85.8 fL (80.0-100.0); Mean Corpuscular HGB Conc 30.6 g/dL (31.0-36.0); Mean Platelet Volume 11.5 fL (7.4-10.4); Monocytes # (Auto) 0.52 K/mcL (0.10-0.90); Monocytes % (Auto) 8.9 % (1.0-12.0); Neutrophils % (Auto) 77.3 % (38.0-78.0); Platelet Count 254 K/mcL (140-440); RBC 3.16 M/mcL (4.63-6.08); Red Cell Distribution Width 15.7 % (11.5-14.5); WBC 5.8 K/mcL (4.5-11.0)
[2021-09-29] MEDS ORDERED: 0.9 % SODIUM CHLORIDE 1,000 ML IV ONE ×2 (03:12→03:34)
[2021-09-29] MEDS ORDERED: PIPERACILLIN SODIUM/TAZOBACTAM 3.375 GM in DEXTROSE 5% IN WATER 50 ML IV ONE (03:14)
[2021-09-29] MEDS ORDERED: VANCOMYCIN 1,500 MG in 0.9 % SODIUM CHLORIDE 500 ML IV ONE (03:14)
[2021-09-29 03:28] LABS: Creatine Kinase 113 U/L (24-195); Creatine Kinase MB 1.6 ng/mL (<6.7)
[2021-09-29 03:29] LABS: ALT/SGPT 6 U/L (<40); AST/SGOT 12 U/L (<40); Albumin 3.1 gm/dL (3.2-5.2); Alkaline Phosphatase 56 U/L (39-117); Bilirubin,Total 0.2 mg/dL (0.1-1.0); Blood Urea Nitrogen 36 mg/dL (8-23); Calcium 8.9 mg/dL (8.6-10.4); Carbon Dioxide 26 mmol/L (22-30); Chloride 97 mmol/L (96-108); Globulin 3.1 gm/dL (2.2-3.7); Glomerular Filtration Rate 25; Glucose 147 mg/dL (70-105); T4 (Thyroxine) 4.6 ug/dl (5.0-12.0); Thyroid Stimulating Hormone 1.59 uIU/mL (0.27-5.01)
[2021-09-29] MEDS ORDERED: 0.9 % SODIUM CHLORIDE 1,000 ML IV SCH (06:45)
--- NOTE | 2021-09-29 07:49 | XRay Report ---
HISTORY: Chest pain, low blood gas level FINDINGS: A thin linear opacity is seen lateral to the left upper heart border. This may be scar or discoid atelectasis. The lungs are otherwise clear. The mild bronchial pneumonia seen in both lower lobes on the prior chest CT done on 09/09/21 appears to have resolved. The heart size is normal. There is no congestive heart failure or pleural effusion. Dual-chamber pacemaker is well-positioned. IMPRESSION: No acute abnormality Interpreted and Authenticated by: Varun Arana 09/29/21
[2021-09-29] MEDS: 0.9 % SODIUM CHLORIDE 1,000 ML IV SCH ×2 (10:19→19:05)
--- NOTE | 2021-09-29 10:31 | Internal Med History&Physical ---
HPI History of Present Illness Patient information: Note initiated : 09/29/21 at 10:23 am Service Date, if different from initiated Date: [] Patient: Juventino Lopez a 76 y/o M admitted on 09/29/21 for AMS, Low BG. Chief Complaint: weakness Chief complaint: weakness History of present illness: Mr. Lopez is a 76 year old M history of atrial fibrillation status post pacemaker placement and on Xarelto, essential hypertension's, stage III chronic kidney disease, mixed dyslipidemia, COPD, type 2 diabetes mellitus, recent Covid infections in July 2021, presenting with weakness. Patient is a very poor historian and he is not sure what have changed that prompted him to came to the emergency room overnight. He stated that he has the same degree of weakness over the past 4 years. He is also committing of poor appetite but again unchanged over the past 4 years. In addition, he is also complaining of frequent falls. No increased degree of shortness of breath relative to the baseline. He is still on 2 L of oxygen's. Labs showing slight worsening of kidney function with serum creatinine level 2.4 with baseline 1.8. Page negative. Chest x-ray no change from baseline no acute intrathoracic pathologies. Admission request was made for dehydration and acute kidney injury. Constitutional Constitutional: Present weakness; Absent chills, excessive sweating, fatigue or fever(s) EENT Eyes: Absent blurry vision, change in vision, loss of vision or other visual disturbances Ears: Absent decreased hearing or tinnitus Nose, mouth and throat: Absent abnormal hearing, dry mouth, headache(s), nasal congestion or sore throat Cardiovascular Cardiovascular: Absent chest pain, chest pain at rest, edema, irregular heart rhythm or palpatations Respiratory Respiratory: Absent cough, dyspnea or wheezing Gastrointestinal Gastrointestinal: Absent abdominal pain, constipation, diarrhea, nausea or vomiting Musculoskeletal Musculoskeletal: Absent back pain, deformity, limited range of motion, muscle cramps, muscle weakness or numbness Integumentary Integumentary: Absent lesions, rash or wounds Neurological Neurological: Absent focal weakness, headache(s) or numbness Psychiatric Psychiatric: Absent anxiety, depression or hallucinations PFSH PFSH All Active Problems (Updated 09/29/21 @ 10:29 by Juliocesar Landeros MD) Anemia, normocytic normochromic (Acute) Stage 2 acute kidney injury (Acute) Hypoxia (Acute) Pneumonia (Acute) Generalized weakness (Acute) Pneumonia (Acute) Acute dehydration (Acute) IKE (acute kidney injury) (Acute) Pneumonia due to COVID-19 virus (Chronic) History of severe acute respiratory syndrome coronavirus 2 (SARS-CoV-2) disease (Chronic) Iron deficiency anemia (Acute) Pacemaker (Chronic) Medicare annual wellness visit, initial (Acute) Obesity (Chronic) Chronic anticoagulation (Chronic) Sick sinus syndrome (Chronic) MRI safe cardiac pacemaker in situ (Chronic) Pacemaker (Chronic) Esophageal stenosis (Chronic) History of colonoscopy (Chronic 11/09/17) History of esophagogastroduodenoscopy (EGD) (Chronic 04/18/18) Diabetic neuropathy (Chronic) Status post surgery (Chronic) H/O colonoscopy (Chronic 02/10/09) Hx of cataract surgery (Chronic) S/P ablation of atrial fibrillation (Chronic 09/24/13) Vitamin D deficiency (Chronic) Peripheral neuropathy (Chronic) Osteoarthrosis (Chronic) Severe obesity (Chronic) Hypertension, essential (Chronic) Hyperlipidemia (Chronic) Hyperkalemia (Chronic 12/26/11) Eczema (Chronic) DMII (diabetes mellitus, type 2) (Chronic) COPD (chronic obstructive pulmonary disease) (Chronic) Chronic kidney disease, stage 3 (Chronic) Atrial fibrillation (Chronic) Medical History Alkalosis Atrial fibrillation Atrial flutter Gonzalez's palsy Bradycardia Chronic anticoagulation Chronic kidney disease, stage 3 COPD (chronic obstructive pulmonary disease) Diabetic neuropathy DMII (diabetes mellitus, type 2) Eczema Esophageal stenosis History of severe acute respiratory syndrome coronavirus 2 (SARS-CoV-2) disease July 2021 Hyperkalemia (12/26/11) Hyperlipidemia Hypertension, essential Iron deficiency anemia Medicare annual wellness visit, initial MRI safe cardiac pacemaker in situ 03/2019 Obesity Osteoarthrosis Otitis externa due to herpes zoster (03/28/11) Pacemaker Paroxysmal supraventricular tachycardia Peripheral neuropathy Pneumonia due to COVID-19 virus July 2021 Severe obesity Sick sinus syndrome Uncontrolled type 2 diabetes mellitus Vitamin D deficiency Surgical History H/O colonoscopy (02/10/09) History of colonoscopy (11/09/17) History of esophagogastroduodenoscopy (EGD) (04/18/18) 05/25/17 Hx of cataract surgery 2009- bilateral Pacemaker March 2019 S/P ablation of atrial fibrillation (09/24/13) Ablation of aberrant conduction pathway-atrial flutter Status post surgery Repair of nasal fracture Family History Mother Type 2 diabetes mellitus Essential hypertension Social History household members: spouse housing: house lives independently: Yes marital status: education level: high school service: No occupational status: retired 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 other: Children-2 Grandchildren-4 eating out: rarely or never physical activity: other details: riding lawnmower smoking status: Former smoker smoking status start date: 07/10/52 smoking status stop date: 07/10/83 alcohol intake frequency: a few times a month substance use type: does not use adriana/congregation: None seatbelt use: never MEDS/ALLERGIES Home Medications and Allergies Home Medications Medication Instructions Recorded Confirmed Type cholecalciferol (vitamin D3) 50 2,000 unit PO DAILY 05/17/18 09/09/21 History mcg (2,000 unit) capsule fluticasone 250 mcg-salmeterol 50 1 inh INHALATION Q12H #60 each 10/31/18 09/09/21 Rx mcg/dose blistr powdr for inhalation (Advair Diskus) rivaroxaban 15 mg tablet 15 mg PO QDAY 90 Days #90 tab 12/22/20 09/10/21 Rx albuterol sulfate 90 mcg/actuation 2 puff INHALATION Q6H PRN #18 g 05/31/21 09/09/21 Rx aerosol inhaler (Ventolin HFA) insulin aspart U-100 100 unit/mL See Rx Instructions SUB-Q .COMPLEX 06/01/21 09/10/21 Rx (3 mL) subcutaneous pen (Novolog #15 ml Flexpen U-100 Insulin aspart) liraglutide 0.6 mg/0.1 mL (18 mg/3 1.8 mg (0.3 mL) SUB-Q QDAY #9 ml 06/21/21 09/10/21 Rx mL) subcutaneous pen injector (Victoza 3-Yordy) pantoprazole 40 mg tablet,delayed 40 mg PO QDAY 90 Days #90 tab 07/12/21 09/10/21 Rx release 3 wheeled walker #1 ea 08/18/21 09/09/21 Rx furosemide 40 mg tablet 40 mg PO QAM #90 tab 08/18/21 09/09/21 Rx insulin glargine 100 unit/mL (3 40 unit SUB-Q QHS ml 08/18/21 09/10/21 History mL) subcutaneous pen (Lantus Solostar U-100 Insulin) metoprolol succinate 50 mg 50 mg PO BID tab 08/18/21 09/09/21 History tablet,extended release 24 hr simvastatin 40 mg tablet 40 mg PO QDAY 90 Days #90 tab 09/06/21 09/10/21 Rx doxazosin 8 mg tablet 1 tab PO QDAY 09/10/21 09/10/21 History cefdinir 300 mg capsule 300 mg PO BID #6 cap 09/11/21 Rx prednisone 10 mg tablet 40 mg PO QDAY #1 tab 09/11/21 Rx lisinopril 40 mg tablet 40 mg PO QDAY 90 Days #90 tab 09/20/21 Rx gabapentin 300 mg capsule 300 mg PO TID 30 Days #90 cap 09/23/21 Rx Allergies Allergy/AdvReac Type Severity Reaction Status Date / Time ciprofloxacin AdvReac Intermediate Itching Verified 08/18/21 10:58 EXAM Constitutional Vitals: Temp Pulse Resp BP Pulse Ox 36.2 C 64 22 131/57 96 09/29/21 06:39 09/29/21 06:39 09/29/21 06:39 09/29/21 06:39 09/29/21 06:39 General appearance: cooperative, disheveled and no acute distress Head Head exam: Present atraumatic and normocephalic Eye Eye exam: Present EOMI and PERRL ENT ENT exam: Present mucous membranes moist, normal exam and normal external ear exam Additional comments: Nasal cannula in place Neck Neck exam: Present normal inspection; Absent lymphadenopathy, tenderness or thyromegaly Respiratory Respiratory exam: Present rhonchi; Absent accessory muscle use, respiratory distress or wheezes Cardiovascular Cardiovascular exam: Present irregular rhythm; Absent JVD Additional comments: cardiac pacemaker in place GI/Abdominal GI/Abdominal exam: Present normal bowel sounds and soft; Absent organomegaly or tenderness Rectal Rectal exam: Present deferred Extremities Exam Extremities exam: Present full ROM, normal capillary refill, normal inspection and pedal edema; Absent tenderness Neurological Exam Neurological exam: Present alert, CN II-XII intact and oriented X3; Absent motor sensory deficit Psychiatric Psychiatric exam: Present normal affect and normal mood; Absent anxious or depressed Skin Skin exam: Present dry; Absent intact Additional comments: abrasion of the left knee, covered by wound dressing DATA Data Completed and Pending Labs: Labs from last 24 hours 09/29/21 09/29/21 09/29/21 01:47 01:47 01:47 WBC 5.8 RBC 3.16 L Hgb 8.3 L Hct 27.1 L MCV 85.8 MCH 26.3 MCHC 30.6 L RDW 15.7 H Plt Count 254 MPV 11.5 H Neut % (Auto) 77.3 Lymph % (Auto) 11.7 L Will % (Auto) 8.9 Eos % (Auto) 1.4 Baso % (Auto) 0.7 Lymph # (Auto) 0.68 L Will # (Auto) 0.52 Eos # (Auto) 0.08 Baso # (Auto) 0.04 Absolute Neutrophils 4.50 VBG Lactic Acid 1.5 Sodium 137 Potassium 4.3 Chloride 97 Carbon Dioxide 26 Anion Gap 14.0 BUN 36 H Creatinine 2.4 H GFR Calculation 25 Glucose 147 H Calcium 8.9 Total Bilirubin 0.2 AST 12 ALT 6 Alkaline Phosphatase 56 Total Creatine Kinase 113 CK-MB (CK-2) 1.6 Troponin T 0.04 H* Total Protein 6.2 Albumin 3.1 L Globulin 3.1 Albumin/Globulin Ratio 1.0 TSH 1.59 Thyroxine (T4) 4.6 L A/P Assessment and plan (1) Stage 2 acute kidney injury: Status: Acute (2) Pacemaker: Status: Chronic Comment: March 2019 (3) Chronic anticoagulation: Status: Chronic (4) DMII (diabetes mellitus, type 2): Status: Chronic (5) COPD (chronic obstructive pulmonary disease): Status: Chronic (6) Chronic kidney disease, stage 3: Status: Chronic Qualifiers: Chronic kidney disease stage 3 subtype: unspecified whether 3a or 3b Qualified Code(s): N18.30 - Chronic kidney disease, stage 3 unspecified (7) Atrial fibrillation: Status: Chronic (8) Hyperlipidemia: Status: Chronic (9) Hypertension, essential: Status: Chronic (10) Anemia, normocytic normochromic: Status: Acute Narrative A/P Narrative: Assessment and Plans: 1. Stage 2 acute kidney injury in the context of chronic kidney disease stage 3: Observation med surg Avoid nephrotoxic agents Hold Lisinopril NS@100cc/hr CMP in the morning to trend kidney functions 2. T2DM: HgA1c Victoza Insulin Lantus 40 unit HS Low dose SSI AC HS Accu Chek AC HS Hypoglycemia protocol Diabetic diet 3. Essential HTN: Continue Metoprolol Hold Lisinopril due to IKE 4. Mixed dyslipidemia: Continue statin therapy 5. h/o COPD, stable: Currently on 2L/min oxygen, baseline Continue bronchodilators 6. Anemia, normocytic normochromic: CBC in the morning to trend H/H 7. Permanent atrial fibrillation: Metoprolol Xarelto GI ppx: oral PPI from home regimen DVT ppx: Xarelto Code status: Full Prognosis: stable Disposition: observation med surg; physical therapy Time Spent With Patient Time: Total time spent is greater than 50% in coordination of care (as documented) at patient's floor/unit and/or counseling patient: Total time spent with greater than 50% in coordination of care (as documented) at patient's floor/unit and/or counseling patient:: 50 - 70 minutes
[2021-09-29] MEDS ORDERED: DEXTROSE 50% 50 ML VIAL IV PRN (12:39)
[2021-09-29] MEDS ORDERED: DEXTROSE 31 GM ORAL.SUSP PO PRN (12:39)
[2021-09-29] MEDS ORDERED: ONDANSETRON 4 MG/2 ML VIAL IV PRN (12:39)
[2021-09-29] MEDS ORDERED: ALBUTEROL SULFATE 200 PUFF INHALER INH PRN (12:39)
[2021-09-29] MEDS ORDERED: ZOLPIDEM 5 MG TABLET PO PRN (12:39)
[2021-09-29] MEDS: FLUTICASONE/SALMETEROL 250/50 INHALER #14 INH SCH (13:19)
[2021-09-29] MEDS: INSULIN LISPRO 1 UNIT/0.01 ML UNIT SQ SCH ×4 (13:27→22:34)
[2021-09-29 13:44] LABS: Hemoglobin A1C 8.2 % Hgb (4.0-6.0)
[2021-09-29] MEDS: 0.9 % SODIUM CHLORIDE 10 ML SYRINGE IV SCH ×2 (14:55→20:48)
[2021-09-29] MEDS: GABAPENTIN 300 MG CAPSULE PO SCH ×2 (14:55→20:47)
[2021-09-29] MEDS: ACETAMINOPHEN 325 MG TABLET PO PRN (19:22)
[2021-09-29] MEDS: DOCUSATE SODIUM 100 MG CAPSULE PO SCH (20:47)
[2021-09-29] MEDS: SENNOSIDES 1 TABLET PO SCH (20:47)
[2021-09-29] MEDS: DOXAZOSIN 4 MG TABLET PO SCH (20:47)
[2021-09-29] MEDS: METOPROLOL SUCCINATE 50 MG TAB.XL.24H PO SCH (20:47)
[2021-09-30] MEDS: FLUTICASONE/SALMETEROL 250/50 INHALER #14 INH SCH ×2 (03:35→14:25)
[2021-09-30] MEDS: 0.9 % SODIUM CHLORIDE 1,000 ML IV SCH (04:59)
[2021-09-30] MEDS: 0.9 % SODIUM CHLORIDE 10 ML SYRINGE IV SCH ×3 (04:59→20:49)
[2021-09-30] MEDS: ACETAMINOPHEN 325 MG TABLET PO PRN (05:01)
[2021-09-30 06:40] LABS: Basophils # (Auto) 0.04 K/mcL (0.00-0.30); Basophils % (Auto) 0.6 % (0.0-2.0); Eosinophils # (Auto) 0.19 K/mcL (0.00-0.70); Eosinophils % (Auto) 2.7 % (0.0-7.0); Hemoglobin 7.7 g/dL (13.7-17.5); Lymphocytes # (Auto) 1.06 K/mcL (1.50-4.80); Lymphocytes % (Auto) 15.3 % (15.5-49.0); Mean Cell Volume 84.5 fL (80.0-100.0); Mean Corpuscular HGB Conc 30.8 g/dL (31.0-36.0); Mean Platelet Volume 11.3 fL (7.4-10.4); Monocytes # (Auto) 0.68 K/mcL (0.10-0.90); Monocytes % (Auto) 9.8 % (1.0-12.0); Neutrophils % (Auto) 71.6 % (38.0-78.0); Platelet Count 240 K/mcL (140-440); RBC 2.96 M/mcL (4.63-6.08); Red Cell Distribution Width 15.4 % (11.5-14.5); WBC 6.9 K/mcL (4.5-11.0)
[2021-09-30 06:57] LABS: ALT/SGPT 5 U/L (<40); AST/SGOT 11 U/L (<40); Albumin 2.6 gm/dL (3.2-5.2); Albumin/Globulin Ratio 0.9 (1.0-2.3); Alkaline Phosphatase 47 U/L (39-117); Bilirubin,Total 0.4 mg/dL (0.1-1.0); Blood Urea Nitrogen 28 mg/dL (8-23); Calcium 8.1 mg/dL (8.6-10.4); Carbon Dioxide 22 mmol/L (22-30); Chloride 103 mmol/L (96-108); Globulin 2.8 gm/dL (2.2-3.7); Glomerular Filtration Rate 44; Glucose 129 mg/dL (70-105); Phosphorous 2.8 mg/dL (2.5-4.5)
[2021-09-30] MEDS: GABAPENTIN 300 MG CAPSULE PO SCH ×3 (09:10→20:45)
[2021-09-30] MEDS: PANTOPRAZOLE 40 MG TABLET PO SCH (09:10)
[2021-09-30] MEDS: RIVAROXABAN 15 MG TABLET PO SCH (09:10)
[2021-09-30] MEDS: SIMVASTATIN 40 MG TABLET PO SCH (09:10)
[2021-09-30] MEDS: DOCUSATE SODIUM 100 MG CAPSULE PO SCH ×2 (09:10→20:26)
[2021-09-30] MEDS: VITAMIN D3 25 MCG TABLET PO SCH (09:11)
[2021-09-30] MEDS: INSULIN LISPRO 1 UNIT/0.01 ML UNIT SQ SCH ×4 (09:11→20:45)
[2021-09-30] MEDS: METOPROLOL SUCCINATE 50 MG TAB.XL.24H PO SCH ×2 (09:11→20:51)
[2021-09-30] MEDS: LIRAGLUTIDE SUB-Q SCH (10:28)
--- NOTE | 2021-09-30 11:34 | Internal Med Progress Note ---
SUBJECTIVE Subjective Patient information: Note initiated : 09/30/21 at 11:31 am Service Date, if different from initiated Date: [] Patient: Juventino Lopez a 76 y/o M admitted on 09/29/21 for AMS, Low BG. Chief Complaint: [] Interval history: Mr. Lopez is a 76 year old M history of atrial fibrillation status post pacemaker placement and on Xarelto, essential hypertension's, stage III chronic kidney disease, mixed dyslipidemia, COPD, type 2 diabetes mellitus, recent Covid infections in July 2021, presenting with weakness. Patient is a very poor historian and he is not sure what have changed that prompted him to came to the emergency room overnight. He stated that he has the same degree of weakness over the past 4 years. He is also committing of poor appetite but again unchanged over the past 4 years. In addition, he is also complaining of frequent falls. No increased degree of shortness of breath relative to the baseline. He is still on 2 L of oxygen's. Labs showing slight worsening of kidney function with serum creatinine level 2.4 with baseline 1.8. Page negative. Chest x-ray no change from baseline no acute intrathoracic pathologies. Admission request was made for dehydration and acute kidney injury. 09/30: Kidney functions went back to baseline. c/o dysphagia. Medically ready. Physical therapy recs. SNF placement, will work on that. Constitutional Vitals: Vital Signs Temp Pulse Resp BP Pulse Ox 37.2 C 60 18 132/50 92 09/30/21 07:39 09/30/21 07:39 09/30/21 07:39 09/30/21 07:39 09/30/21 07:39 Period Temp Pulse Resp BP Sys/Smith Pulse Ox Last 24 Hr 36.8 C-37.3 C 60-76 16-22 98-145/39-59 92-94 Intake and Output 09/29/21 09/30/21 09/30/21 21:59 05:59 13:59 Intake Total 1117 1090 Output Total 301 526 200 Balance 816 564 -200 Weight 114.033 kg Intake & Output: Intake & Output 09/29/21 09/30/21 09/30/21 21:59 05:59 13:59 Intake Total 1117 1090 Output Total 301 526 200 Balance 816 564 -200 Weight 114.033 kg Intake: IV 877 990 Sodium Chloride 0.9% 1,000 ml @ 877 990 100 mls/hr IV .Q10H [facility] Rx#: [id number] Oral 240 100 Output: Void Amount 300 525 200 # of times incontinent of urine 1 1 Other: Meal Dinner Percent of Meal Consumed 75% Feeding Ability Independent Urine Appearance Clear Clear Cloudy Urine Color Pale Pale Straw Urine Odor Normal Head Head exam: Present atraumatic and normal inspection Eye Eye exam: Present normal appearance ENT ENT exam: Present mucous membranes moist, normal exam and normal external ear exam Neck Neck exam: Present normal inspection Respiratory Respiratory exam: Present normal respiratory exam Cardiovascular Cardiovascular exam: Present irregular rhythm GI/Abdominal GI/Abdominal exam: Present normal bowel sounds Back Exam Back exam: Present normal inspection Neurological Exam Neurological exam: Present alert and oriented X3 Skin Skin exam: Present warm; Absent intact Additional comments: Abrasion of nose bridge and left knee OBJ DATA Labs CBC & Chem 7: 09/30/21 05:29 09/30/21 05:29 Labs: Abnormal Lab Results 09/30/21 09/30/21 09/29/21 05:29 05:29 01:47 RBC 2.96 L Hgb 7.7 L Hct 25.0 L MCHC 30.8 L RDW 15.4 H MPV 11.3 H Lymph % (Auto) 15.3 L Lymph # (Auto) 1.06 L BUN 28 H Creatinine 1.5 H Glucose 129 H Hemoglobin A1c 8.2 H Calcium 8.1 L Magnesium 1.5 L Troponin T Total Protein 5.4 L Albumin 2.6 L Albumin/Globulin Ratio 0.9 L Thyroxine (T4) 09/29/21 09/29/21 09/29/21 01:47 01:47 01:47 RBC 3.16 L Hgb 8.3 L Hct 27.1 L MCHC 30.6 L RDW 15.7 H MPV 11.5 H Lymph % (Auto) 11.7 L Lymph # (Auto) 0.68 L BUN 36 H Creatinine 2.4 H Glucose 147 H Hemoglobin A1c Calcium Magnesium Troponin T 0.04 H* Total Protein Albumin 3.1 L Albumin/Globulin Ratio Thyroxine (T4) 4.6 L Meds: Medications Acetaminophen (Acetaminophen 325 Mg Tablet) 650 mg PO Q6HP PRN; Protocol PRN Reason: Per Pain Protocol/Fever > 101 Last Admin: 03/24/22 05:01 Dose: 650 mg Documented by: Albuterol Sulfate (Albuterol Sulfate 200 Puff Inhaler) 2 puff INH Q6HP PRN PRN Reason: shortness of breath or wheezing Albuterol/Ipratropium (Ipratropium/Albuterol 3 Ml Ampul.Neb) 3 ml NEB Q4HRT PRN PRN Reason: Wheezing Dextrose (Dextrose 50% 50 Ml Vial) 0 ml IV UD PRN PRN Reason: Per Sliding Scale Diagnostic Test (Pha) (Accu-Chek 1 Each Strip) 1 each FS [facility] Last Admin: 09/30/21 09:11 Dose: 1 each Documented by: Docusate Sodium (Docusate Sodium 100 Mg Capsule) 100 mg PO BID [facility] Last Admin: 09/30/21 09:10 Dose: 100 mg Documented by: Doxazosin Mesylate (Doxazosin 4 Mg Tablet) 8 mg PO HS [facility] Last Admin: 09/29/21 20:47 Dose: 8 mg Documented by: Gabapentin (Gabapentin 300 Mg Capsule) 300 mg PO TID [facility] Last Admin: 09/30/21 09:10 Dose: 300 mg Documented by: Glucose (Dextrose 31 Gm Oral.Susp) 15 gm PO PRN PRN PRN Reason: Hypoglycemia Sodium Chloride (Sodium Chloride 0.9%) 1,000 mls @ 100 mls/hr IV .Q10H [facility] Last Admin: 09/30/21 04:59 Dose: 100 mls/hr Documented by: Insulin Human Lispro (Insulin Lispro 1 Unit/0.01 Ml Unit) 0 unit SQ [facility]; Protocol Last Admin: 09/30/21 09:11 Dose: Not Given Documented by: Metoprolol Succinate (Metoprolol Succinate 50 Mg Tab.Xl.24h) 50 mg PO BID [facility] Last Admin: 09/30/21 09:11 Dose: 50 mg Documented by: Ondansetron HCl (Ondansetron 4 Mg/2 Ml Vial) 4 mg IV Q6HP PRN PRN Reason: Nausea And Vomiting Pantoprazole Sodium (Pantoprazole 40 Mg Tablet) 40 mg PO QDAY [facility] Last Admin: 09/30/21 09:10 Dose: 40 mg Documented by: Liraglutide [Victoza 3-Yordy] 0.6 Mg/0.1 Ml (18 Mg/3 Ml) Pen 1.8 dose SUB-Q QDAY [facility] Last Admin: 09/30/21 10:28 Dose: Not Given Documented by: Rivaroxaban (Rivaroxaban 15 Mg Tablet) 15 mg PO QDAY [facility] Last Admin: 09/30/21 09:10 Dose: 15 mg Documented by: Fluticasone/Salmeterol (Fluticasone/Salmeterol 250/50 Inhaler #14) 1 puff INH Q12H [facility] Last Admin: 09/30/21 03:35 Dose: Not Given Documented by: Senna (Sennosides 1 Tablet) 2 tab PO HS [facility] Last Admin: 09/29/21 20:47 Dose: 2 tab Documented by: Simvastatin (Simvastatin 40 Mg Tablet) 40 mg PO QDAY [facility] Last Admin: 09/30/21 09:10 Dose: 40 mg Documented by: Sodium Chloride (0.9 % Sodium Chloride 10 Ml Syringe) 10 ml IV Q8 [facility] Last Admin: 09/30/21 04:59 Dose: Not Given Documented by: Vitamin D (Vitamin D3 25 Mcg Tablet) 50 mcg PO DAILY [facility] Last Admin: 09/30/21 09:11 Dose: 50 mcg Documented by: Zolpidem Tartrate (Zolpidem 5 Mg Tablet) 5 mg PO HSP PRN PRN Reason: Insomnia A/P Assessment and plan (1) Stage 2 acute kidney injury: Status: Acute (2) Pacemaker: Status: Chronic Comment: March 2019 (3) Chronic anticoagulation: Status: Chronic (4) DMII (diabetes mellitus, type 2): Status: Chronic (5) COPD (chronic obstructive pulmonary disease): Status: Chronic (6) Chronic kidney disease, stage 3: Status: Chronic Qualifiers: Chronic kidney disease stage 3 subtype: unspecified whether 3a or 3b Qualified Code(s): N18.30 - Chronic kidney disease, stage 3 unspecified (7) Atrial fibrillation: Status: Chronic (8) Hyperlipidemia: Status: Chronic (9) Hypertension, essential: Status: Chronic (10) Anemia, normocytic normochromic: Status: Acute Narrative A/P Narrative: Assessment and Plans: 1. Stage 2 acute kidney injury in the context of chronic kidney disease stage 3: Observation med surg Kidney functions back to baseline Avoid nephrotoxic agents Resume Lisinopril Okay to saline lock CMP in the morning to trend kidney functions 2. T2DM: HgA1c Victoza Insulin Lantus 40 unit HS Low dose SSI AC HS Accu Chek AC HS Hypoglycemia protocol Diabetic diet 3. Essential HTN: Continue Metoprolol Resume Lisinopril due to IKE 4. Mixed dyslipidemia: Continue statin therapy 5. h/o COPD, stable: Currently on 2L/min oxygen, baseline Continue bronchodilators 6. Anemia, normocytic normochromic: CBC in the morning to trend H/H 7. Permanent atrial fibrillation: Metoprolol Xarelto GI ppx: oral PPI from home regimen DVT ppx: Xarelto Code status: Full Prognosis: stable Disposition: observation med surg; physical therapy-->recs. SNF placement Time Spent With Patient Time: Total time spent is greater than 50% in coordination of care (as documented) at patient's floor/unit and/or counseling patient: Total time spent with greater than 50% in coordination of care (as documented) at patient's floor/unit and/or counseling patient:: 25 - 35 minutes QUALITY VTE Deep Vein Thrombosis/Pulmonary Embolism Present on Admission: No
[2021-09-30] MEDS: SENNOSIDES 1 TABLET PO SCH (20:26)
[2021-09-30] MEDS: DOXAZOSIN 4 MG TABLET PO SCH (20:45)
[2021-10-01] MEDS: FLUTICASONE/SALMETEROL 250/50 INHALER #14 INH SCH ×3 (00:59→23:38)
[2021-10-01] MEDS: IPRATROPIUM/ALBUTEROL 3 ML AMPUL.NEB NEB PRN (02:25)
[2021-10-01] MEDS: 0.9 % SODIUM CHLORIDE 10 ML SYRINGE IV SCH ×3 (05:28→21:35)
--- NOTE | 2021-10-01 07:31 | EKG ---
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
--- NOTE | 2021-10-01 07:32 | EKG ---
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 Measurements Intervals [place] Rate: 127 P: 259 CA: 120 QRS: 0 QRSD: 160 T: 9 QT: 335 QTc: 488 Interpretive Statements Sinus or ectopic atrial tachycardia Right bundle branch block Electronically Signed On 10-01-2021 7:31:53 PDT by Candie Yap D.O. /store/M0/[id number]
[2021-10-01] MEDS: INSULIN LISPRO 1 UNIT/0.01 ML UNIT SQ SCH ×4 (07:59→21:35)
[2021-10-01] MEDS: RIVAROXABAN 15 MG TABLET PO SCH (09:06)
[2021-10-01] MEDS: METOPROLOL SUCCINATE 50 MG TAB.XL.24H PO SCH ×2 (09:06→21:35)
[2021-10-01] MEDS: VITAMIN D3 25 MCG TABLET PO SCH (09:06)
[2021-10-01] MEDS: LISINOPRIL 20 MG TABLET PO SCH (09:07)
[2021-10-01] MEDS: GABAPENTIN 300 MG CAPSULE PO SCH ×3 (09:07→21:35)
[2021-10-01] MEDS: PANTOPRAZOLE 40 MG TABLET PO SCH (09:07)
[2021-10-01] MEDS: SIMVASTATIN 40 MG TABLET PO SCH (09:07)
[2021-10-01] MEDS: DOCUSATE SODIUM 100 MG CAPSULE PO SCH ×2 (09:12→21:36)
[2021-10-01] MEDS: LIRAGLUTIDE SUB-Q SCH (09:12)
--- NOTE | 2021-10-01 12:03 | XRay Report ---
HISTORY: Dysphagia FINDINGS: Patient is very weak and was examined in a semierect position. He was given one swallow of barium. There is normal oral and pharyngeal motility. He did not aspirate. There is severe dysmotility in the thoracic esophagus with numerous large tertiary contractions. The esophagus is not abnormally dilated. There is a functional obstruction due to muscle spasm near the gastroesophageal junction. Very little barium passed into the stomach. No fixed mass is seen. There is no apparent ulceration or stricture. No hiatus hernia is present. One minute 19 seconds of fluoroscopy time was used. IMPRESSION: Severe esophageal dysmotility with muscle spasms and a functional obstruction at the gastroesophageal junction Interpreted and Authenticated by: Varun Arana 10/01/21
--- NOTE | 2021-10-01 14:49 | Internal Med Progress Note ---
SUBJECTIVE Subjective Patient information: Note initiated : 10/01/21 at 2:44 pm Service Date, if different from initiated Date: [] Patient: Juventino Lopez a 76 y/o M admitted on 10/01/21 for AMS, Low BG. Chief Complaint: [] Principal diagnosis: Failure to thrive Interval history: Mr. Lopez is a 76 year old M history of atrial fibrillation status post pacemaker placement and on Xarelto, essential hypertension's, stage III chronic kidney disease, mixed dyslipidemia, COPD, type 2 diabetes mellitus, recent Covid infections in July 2021, presenting with weakness. Patient is a very poor historian and he is not sure what have changed that prompted him to came to the emergency room overnight. He stated that he has the same degree of weakness over the past 4 years. He is also committing of poor appetite but again unchanged over the past 4 years. In addition, he is also complaining of frequent falls. No increased degree of shortness of breath relative to the baseline. He is still on 2 L of oxygen's. Labs showing slight worsening of kidney function with serum creatinine level 2.4 with baseline 1.8. Page n egative. Chest x-ray no change from baseline no acute intrathoracic pathologies. Admission request was made for dehydration and acute kidney injury. 09/30: Kidney functions went back to baseline. c/o dysphagia. Medically ready. Physical therapy recs. SNF placement, will work on that. 10/01: Discussed w with speech therapy yesterday and ordered barium swallow x-ray. Which confirms severe esophageal dysmotility with functional obstruction at the level of the gastroesophageal junction. Currently on dysphagia level 5 minced food diet. Speech therapy following. Constitutional Vitals: Vital Signs Temp Pulse Resp BP Pulse Ox 97.9 F 68 15 125/48 90 10/01/21 11:29 10/01/21 11:29 10/01/21 11:29 10/01/21 11:29 10/01/21 11:29 Period Temp Pulse Resp BP Sys/Smith Pulse Ox Last 24 Hr 97.9 F-98.8 F 59-68 15-20 121-166/48-94 90-95 Intake and Output 10/01/21 10/01/21 10/01/21 05:59 13:59 21:59 Intake Total 1080 Balance 1080 Intake & Output: Intake & Output 10/01/21 10/01/21 10/01/21 05:59 13:59 21:59 Intake Total 1080 Balance 1080 Intake: Oral 1080 Other: Meal Lunch Percent of Meal Consumed 100% # Voids 1 General appearance: average body habitus, cooperative and no acute distress Head Head exam: Present atraumatic and normocephalic Eye Eye exam: Present normal appearance Respiratory Respiratory exam: Present normal respiratory exam and CTAB; Absent accessory muscle use, decreased breath sounds or respiratory distress Cardiovascular Cardiovascular exam: Present normal rate and rhythm and RRR; Absent bradycardia, gallop, systolic murmur or tachycardia GI/Abdominal GI/Abdominal exam: Present soft Neurological Exam Neurological exam: Present alert and oriented X3; Absent altered or motor sensory deficit OBJ DATA Labs CBC & Chem 7: 09/30/21 05:29 09/30/21 05:29 Labs: Abnormal Lab Results 09/30/21 09/30/21 09/29/21 05:29 05:29 01:47 RBC 2.96 L Hgb 7.7 L Hct 25.0 L MCHC 30.8 L RDW 15.4 H MPV 11.3 H Lymph % (Auto) 15.3 L Lymph # (Auto) 1.06 L BUN 28 H Creatinine 1.5 H Glucose 129 H Hemoglobin A1c 8.2 H Calcium 8.1 L Magnesium 1.5 L Troponin T Total Protein 5.4 L Albumin 2.6 L Albumin/Globulin Ratio 0.9 L Thyroxine (T4) 09/29/21 09/29/21 09/29/21 01:47 01:47 01:47 RBC 3.16 L Hgb 8.3 L Hct 27.1 L MCHC 30.6 L RDW 15.7 H MPV 11.5 H Lymph % (Auto) 11.7 L Lymph # (Auto) 0.68 L BUN 36 H Creatinine 2.4 H Glucose 147 H Hemoglobin A1c Calcium Magnesium Troponin T 0.04 H* Total Protein Albumin 3.1 L Albumin/Globulin Ratio Thyroxine (T4) 4.6 L Meds: Medications Acetaminophen (Acetaminophen 325 Mg Tablet) 650 mg PO Q6HP PRN; Protocol PRN Reason: Per Pain Protocol/Fever > 101 Last Admin: 09/30/21 05:01 Dose: 650 mg Documented by: Albuterol Sulfate (Albuterol Sulfate 200 Puff Inhaler) 2 puff INH Q6HP PRN PRN Reason: shortness of breath or wheezing Albuterol/Ipratropium (Ipratropium/Albuterol 3 Ml Ampul.Neb) 3 ml NEB Q4HRT PRN PRN Reason: Wheezing Last Admin: 10/01/21 02:25 Dose: 3 ml Documented by: Dextrose (Dextrose 50% 50 Ml Vial) 0 ml IV UD PRN PRN Reason: Per Sliding Scale Diagnostic Test (Pha) (Accu-Chek 1 Each Strip) 1 each FS [facility] Last Admin: 10/01/21 11:40 Dose: 1 each Documented by: Docusate Sodium (Docusate Sodium 100 Mg Capsule) 100 mg PO BID [facility] Last Admin: 10/01/21 09:12 Dose: Not Given Documented by: Doxazosin Mesylate (Doxazosin 4 Mg Tablet) 8 mg PO HS [facility] Last Admin: 09/30/21 20:45 Dose: 8 mg Documented by: Gabapentin (Gabapentin 300 Mg Capsule) 300 mg PO TID [facility] Last Admin: 10/01/21 09:07 Dose: 300 mg Documented by: Glucose (Dextrose 31 Gm Oral.Susp) 15 gm PO PRN PRN PRN Reason: Hypoglycemia Insulin Human Lispro (Insulin Lispro 1 Unit/0.01 Ml Unit) 0 unit SQ [facility]; Protocol Last Admin: 10/01/21 11:42 Dose: 4 units Documented by: Lisinopril (Lisinopril 20 Mg Tablet) 40 mg PO DAILY [facility] Last Admin: 10/01/21 09:07 Dose: 40 mg Documented by: Metoprolol Succinate (Metoprolol Succinate 50 Mg Tab.Xl.24h) 50 mg PO BID [facility] Last Admin: 10/01/21 09:06 Dose: 50 mg Documented by: Ondansetron HCl (Ondansetron 4 Mg/2 Ml Vial) 4 mg IV Q6HP PRN PRN Reason: Nausea And Vomiting Pantoprazole Sodium (Pantoprazole 40 Mg Tablet) 40 mg PO QDAY [facility] Last Admin: 10/01/21 09:07 Dose: 40 mg Documented by: Liraglutide [Victoza 3-Yordy] 0.6 Mg/0.1 Ml (18 Mg/3 Ml) Pen 1.8 dose SUB-Q QDAY [facility] Last Admin: 10/01/21 09:12 Dose: Not Given Documented by: Rivaroxaban (Rivaroxaban 15 Mg Tablet) 15 mg PO QDAY [facility] Last Admin: 10/01/21 09:06 Dose: 15 mg Documented by: Fluticasone/Salmeterol (Fluticasone/Salmeterol 250/50 Inhaler #14) 1 puff INH Q12H [facility] Last Admin: 10/01/21 00:59 Dose: Not Given Documented by: Senna (Sennosides 1 Tablet) 2 tab PO HS [facility] Last Admin: 09/30/21 20:26 Dose: Not Given Documented by: Simvastatin (Simvastatin 40 Mg Tablet) 40 mg PO QDAY [facility] Last Admin: 10/01/21 09:07 Dose: 40 mg Documented by: Sodium Chloride (0.9 % Sodium Chloride 10 Ml Syringe) 10 ml IV Q8 [facility] Last Admin: 10/01/21 05:28 Dose: 10 ml Documented by: Vitamin D (Vitamin D3 25 Mcg Tablet) 50 mcg PO DAILY [facility] Last Admin: 10/01/21 09:06 Dose: 50 mcg Documented by: Zolpidem Tartrate (Zolpidem 5 Mg Tablet) 5 mg PO HSP PRN PRN Reason: Insomnia Impressions Impression: Barium X Ray today- Severe esophageal dysmotility with muscle spasms and a functional obstruction at the gastroesophageal junction A/P Narrative A/P Narrative: 1. Stage 2 acute kidney injury in the context of chronic kidney disease stage 3: Observation med surg Kidney functions back to baseline Avoid nephrotoxic agents Resume Lisinopril Okay to saline lock CMP in the morning to trend kidney functions 2. T2DM: HgA1c 8.2 Victoza Insulin Lantus 40 unit HS Low dose SSI AC HS Accu Chek AC HS Hypoglycemia protocol Diabetic diet 3. Essential HTN: Continue Metoprolol Resume Lisinopril due to IKE 4. Mixed dyslipidemia: Continue statin therapy 5. h/o COPD, stable: Currently on 2L/min oxygen, baseline Continue bronchodilators 6. Anemia, normocytic normochromic: CBC in the morning to trend H/H 7. Permanent atrial fibrillation: Metoprolol Xarelto 8. Esophageal dysmotility He has followed up with gastroenterology and surgery in the past. His option for Botox injection, balloon dilation or surgical intervention. It appears that his insurance did not pay for Botox injection. Balloon dilation was considered risky. We will defer this for follow-up with his intensive care medicine specialist and surgeon. Is BMI is 37.6 which indicates he is getting enough nourishment and nutrition by oral intake. GI ppx: oral PPI from home regimen DVT ppx: Xarelto Code status: Full Prognosis: stable Disposition: observation med surg; physical therapy-->recs. SNF placement Time Spent With Patient Time: Total time spent is greater than 50% in coordination of care (as documented) at patient's floor/unit and/or counseling patient: Total time spent with greater than 50% in coordination of care (as documented) at patient's floor/unit and/or counseling patient:: 25 - 35 minutes QUALITY VTE Deep Vein Thrombosis/Pulmonary Embolism Present on Admission: No
[2021-10-01] MEDS: DOXAZOSIN 4 MG TABLET PO SCH (21:35)
[2021-10-01] MEDS: SENNOSIDES 1 TABLET PO SCH (21:36)
[2021-10-02] MEDS: 0.9 % SODIUM CHLORIDE 10 ML SYRINGE IV SCH ×3 (04:08→21:30)
[2021-10-02 06:46] LABS: Blood Urea Nitrogen 19 mg/dL (8-23); Calcium 8.7 mg/dL (8.6-10.4); Carbon Dioxide 22 mmol/L (22-30); Chloride 107 mmol/L (96-108); Glomerular Filtration Rate 64; Glucose 165 mg/dL (70-105)
[2021-10-02] MEDS: VITAMIN D3 25 MCG TABLET PO SCH (07:57)
[2021-10-02] MEDS: GABAPENTIN 300 MG CAPSULE PO SCH ×3 (07:57→21:29)
[2021-10-02] MEDS: SIMVASTATIN 40 MG TABLET PO SCH (07:57)
[2021-10-02] MEDS: LISINOPRIL 20 MG TABLET PO SCH (07:57)
[2021-10-02] MEDS: RIVAROXABAN 15 MG TABLET PO SCH (07:58)
[2021-10-02] MEDS: INSULIN LISPRO 1 UNIT/0.01 ML UNIT SQ SCH ×4 (07:58→21:28)
[2021-10-02] MEDS: ACETAMINOPHEN 325 MG TABLET PO PRN (07:58)
[2021-10-02] MEDS: PANTOPRAZOLE 40 MG TABLET PO SCH (07:58)
[2021-10-02] MEDS: METOPROLOL SUCCINATE 50 MG TAB.XL.24H PO SCH ×2 (07:58→21:29)
[2021-10-02] MEDS: LIRAGLUTIDE SUB-Q SCH (07:59)
[2021-10-02] MEDS: DOCUSATE SODIUM 100 MG CAPSULE PO SCH ×2 (07:59→21:29)
--- NOTE | 2021-10-02 11:29 | Internal Med Progress Note ---
SUBJECTIVE Subjective Patient information: Note initiated : 10/02/21 at 11:27 am Service Date, if different from initiated Date: [] Patient: Juventino Lopez a 76 y/o M admitted on 10/01/21 for AMS, Low BG. Chief Complaint: [] Principal diagnosis: Failure to thrive Interval history: Mr. Lopez is a 76 year old M history of atrial fibrillation status post pacemaker placement and on Xarelto, essential hypertension's, stage III chronic kidney disease, mixed dyslipidemia, COPD, type 2 diabetes mellitus, recent Covid infections in July 2021, presenting with weakness. Patient is a very poor historian and he is not sure what have changed that prompted him to came to the emergency room overnight. He stated that he has the same degree of weakness over the past 4 years. He is also committing of poor appetite but again unchanged over the past 4 years. In addition, he is also complaining of frequent falls. No increased degree of shortness of breath relative to the baseline. He is still on 2 L of oxygen's. Labs showing slight worsening of kidney function with serum creatinine level 2.4 with baseline 1.8. Page negative. Chest x-ray no change from baseline no acute intrathoracic pathologies. Admission request was made for dehydration and acute kidney injury. 09/30: Kidney functions went back to baseline. c/o dysphagia. Medically ready. Physical therapy recs. SNF placement, will work on that. 10/01: Discussed w with speech therapy yesterday and ordered barium swallow x-ray. Which confirms severe esophageal dysmotility with functional obstruction at the level of the gastroesophageal junction. Currently on dysphagia level 5 minced food diet. Speech therapy following 10/02- No new sx. Eating well. Awaiting placement Constitutional Vitals: Vital Signs Temp Pulse Resp BP Pulse Ox 98.9 F 71 18 126/59 94 10/02/21 11:20 10/02/21 11:20 10/02/21 11:20 10/02/21 11:20 10/02/21 11:20 Period Temp Pulse Resp BP Sys/Smith Pulse Ox Last 24 Hr 97.9 F-99.1 F 64-87 15-24 125-135/45-61 90-95 Intake and Output 10/01/21 10/02/21 10/02/21 21:59 05:59 13:59 Intake Total 300 Output Total 430 101 1 Balance -430 199 -1 Weight 112.037 kg Intake & Output: Intake & Output 10/01/21 10/02/21 10/02/21 21:59 05:59 13:59 Intake Total 300 Output Total 430 101 1 Balance -430 199 -1 Weight 112.037 kg Intake: Oral 300 Output: Void Amount 430 100 # of times incontinent of urine 1 1 Other: Meal Breakfast Percent of Meal Consumed 75% Feeding Ability Independent Urine Appearance Clear Urine Color Dark Yellow # Voids 1 1 General appearance: average body habitus, cooperative and no acute distress Head Head exam: Present atraumatic and normocephalic Eye Eye exam: Present normal appearance Respiratory Respiratory exam: Present normal respiratory exam and CTAB; Absent accessory muscle use, decreased breath sounds or respiratory distress Cardiovascular Cardiovascular exam: Present normal rate and rhythm and RRR; Absent bradycardia, gallop, systolic murmur or tachycardia GI/Abdominal GI/Abdominal exam: Present soft Neurological Exam Neurological exam: Present alert and oriented X3; Absent altered or motor sensory deficit OBJ DATA Labs CBC & Chem 7: 09/30/21 05:29 10/02/21 05:28 Labs: Abnormal Lab Results 10/02/21 09/30/21 09/30/21 05:28 05:29 05:29 RBC 2.96 L Hgb 7.7 L Hct 25.0 L MCHC 30.8 L RDW 15.4 H MPV 11.3 H Lymph % (Auto) 15.3 L Lymph # (Auto) 1.06 L BUN 28 H Creatinine 1.5 H Glucose 165 H 129 H Hemoglobin A1c Calcium 8.1 L Magnesium 1.5 L Total Protein 5.4 L Albumin 2.6 L Albumin/Globulin Ratio 0.9 L 09/29/21 01:47 RBC Hgb Hct MCHC RDW MPV Lymph % (Auto) Lymph # (Auto) BUN Creatinine Glucose Hemoglobin A1c 8.2 H Calcium Magnesium Total Protein Albumin Albumin/Globulin Ratio Meds: Medications Acetaminophen (Acetaminophen 325 Mg Tablet) 650 mg PO Q6HP PRN; Protocol PRN Reason: Per Pain Protocol/Fever > 101 Last Admin: 10/02/21 07:58 Dose: 650 mg Documented by: Albuterol Sulfate (Albuterol Sulfate 200 Puff Inhaler) 2 puff INH Q6HP PRN PRN Reason: shortness of breath or wheezing Albuterol/Ipratropium (Ipratropium/Albuterol 3 Ml Ampul.Neb) 3 ml NEB Q4HRT PRN PRN Reason: Wheezing Last Admin: 10/01/21 02:25 Dose: 3 ml Documented by: Dextrose (Dextrose 50% 50 Ml Vial) 0 ml IV UD PRN PRN Reason: Per Sliding Scale Diagnostic Test (Pha) (Accu-Chek 1 Each Strip) 1 each FS [facility] Last Admin: 10/02/21 07:00 Dose: 1 each Documented by: Docusate Sodium (Docusate Sodium 100 Mg Capsule) 100 mg PO BID [facility] Last Admin: 10/02/21 07:59 Dose: Not Given Documented by: Doxazosin Mesylate (Doxazosin 4 Mg Tablet) 8 mg PO HS [facility] Last Admin: 10/01/21 21:35 Dose: 8 mg Documented by: Gabapentin (Gabapentin 300 Mg Capsule) 300 mg PO TID [facility] Last Admin: 10/02/21 07:57 Dose: 300 mg Documented by: Glucose (Dextrose 31 Gm Oral.Susp) 15 gm PO PRN PRN PRN Reason: Hypoglycemia Insulin Human Lispro (Insulin Lispro 1 Unit/0.01 Ml Unit) 0 unit SQ [facility]; Protocol Last Admin: 10/02/21 07:58 Dose: 2 units Documented by: Lisinopril (Lisinopril 20 Mg Tablet) 40 mg PO DAILY [facility] Last Admin: 10/02/21 07:57 Dose: 40 mg Documented by: Metoprolol Succinate (Metoprolol Succinate 50 Mg Tab.Xl.24h) 50 mg PO BID [facility] Last Admin: 10/02/21 07:58 Dose: 50 mg Documented by: Ondansetron HCl (Ondansetron 4 Mg/2 Ml Vial) 4 mg IV Q6HP PRN PRN Reason: Nausea And Vomiting Pantoprazole Sodium (Pantoprazole 40 Mg Tablet) 40 mg PO QDAY [facility] Last Admin: 10/02/21 07:58 Dose: 40 mg Documented by: Liraglutide [Victoza 3-Yordy] 0.6 Mg/0.1 Ml (18 Mg/3 Ml) Pen 1.8 dose SUB-Q QDAY [facility] Last Admin: 10/02/21 07:59 Dose: Not Given Documented by: Rivaroxaban (Rivaroxaban 15 Mg Tablet) 15 mg PO QDAY [facility] Last Admin: 10/02/21 07:58 Dose: 15 mg Documented by: Fluticasone/Salmeterol (Fluticasone/Salmeterol 250/50 Inhaler #14) 1 puff INH Q12H [facility] Last Admin: 10/01/21 23:38 Dose: Not Given Documented by: Senna (Sennosides 1 Tablet) 2 tab PO HS [facility] Last Admin: 10/01/21 21:36 Dose: Not Given Documented by: Simvastatin (Simvastatin 40 Mg Tablet) 40 mg PO QDAY [facility] Last Admin: 10/02/21 07:57 Dose: 40 mg Documented by: Sodium Chloride (0.9 % Sodium Chloride 10 Ml Syringe) 10 ml IV Q8 [facility] Last Admin: 10/02/21 04:08 Dose: 10 ml Documented by: Vitamin D (Vitamin D3 25 Mcg Tablet) 50 mcg PO DAILY [facility] Last Admin: 10/02/21 07:57 Dose: 50 mcg Documented by: Zolpidem Tartrate (Zolpidem 5 Mg Tablet) 5 mg PO HSP PRN PRN Reason: Insomnia A/P Narrative A/P Narrative: 1. Stage 2 acute kidney injury in the context of chronic kidney disease stage 3: Observation med surg Kidney functions back to baseline Avoid nephrotoxic agents Resume Lisinopril Okay to saline lock 2. T2DM: HgA1c 8.2 Victoza Insulin Lantus 40 unit HS Low dose SSI AC HS Accu Chek AC HS Hypoglycemia protocol Diabetic diet 3. Essential HTN: Continue Metoprolol Resume Lisinopril due to IKE 4. Mixed dyslipidemia: Continue statin therapy 5. h/o COPD, stable: Currently on 2L/min oxygen, baseline Continue bronchodilators 6. Anemia, normocytic normochromic: CBC in the morning to trend H/H 7. Permanent atrial fibrillation: Metoprolol Xarelto 8. Esophageal dysmotility He has followed up with gastroenterology and surgery in the past. His option for Botox injection, balloon dilation or surgical intervention. It appears that his insurance did not pay for Botox injection. Balloon dilation was considered risky. We will defer this for follow-up with his iuss master analyst and surgeon. Is BMI is 37.6 which indicates he is getting enough nourishment and nutrition by oral intake GI ppx: oral PPI from home regimen DVT ppx: Xarelto Code status: Full Prognosis: stable Disposition: observation med surg; physical therapy--> rehab confirmed. Discharge to rehab on Monday. Time Spent With Patient Time: Total time spent is greater than 50% in coordination of care (as documented) at patient's floor/unit and/or counseling patient: Total time spent with greater than 50% in coordination of care (as documented) at patient's floor/unit and/or counseling patient:: 25 - 35 minutes QUALITY VTE Deep Vein Thrombosis/Pulmonary Embolism Present on Admission: No
[2021-10-02] MEDS: FLUTICASONE/SALMETEROL 250/50 INHALER #14 INH SCH ×2 (12:42→23:37)
[2021-10-02] MEDS: IPRATROPIUM/ALBUTEROL 3 ML AMPUL.NEB NEB PRN (12:53)
[2021-10-02] MEDS: traMADol 50 MG TABLET PO SCH ×2 (13:08→21:30)
[2021-10-02] MEDS ORDERED: traMADol 50 MG TABLET PO SCH (21:00)
[2021-10-02] MEDS: DOXAZOSIN 4 MG TABLET PO SCH (21:29)
[2021-10-02] MEDS: SENNOSIDES 1 TABLET PO SCH (21:30)
[2021-10-03] MEDS: 0.9 % SODIUM CHLORIDE 10 ML SYRINGE IV SCH ×3 (05:08→20:38)
[2021-10-03] MEDS: METOPROLOL SUCCINATE 50 MG TAB.XL.24H PO SCH ×2 (08:04→20:36)
[2021-10-03] MEDS: INSULIN LISPRO 1 UNIT/0.01 ML UNIT SQ SCH ×4 (08:04→20:38)
[2021-10-03] MEDS: RIVAROXABAN 15 MG TABLET PO SCH (08:04)
[2021-10-03] MEDS: GABAPENTIN 300 MG CAPSULE PO SCH ×3 (08:04→20:37)
[2021-10-03] MEDS: VITAMIN D3 25 MCG TABLET PO SCH (08:05)
[2021-10-03] MEDS: PANTOPRAZOLE 40 MG TABLET PO SCH (08:05)
[2021-10-03] MEDS: SIMVASTATIN 40 MG TABLET PO SCH (08:05)
[2021-10-03] MEDS: traMADol 50 MG TABLET PO SCH ×2 (08:05→20:37)
[2021-10-03] MEDS: LISINOPRIL 20 MG TABLET PO SCH (08:06)
[2021-10-03] MEDS: DOCUSATE SODIUM 100 MG CAPSULE PO SCH ×2 (08:06→20:37)
[2021-10-03] MEDS: FLUTICASONE/SALMETEROL 250/50 INHALER #14 INH SCH ×2 (09:46→20:37)
[2021-10-03] MEDS: LIRAGLUTIDE SUB-Q SCH (09:47)
--- NOTE | 2021-10-03 13:05 | Internal Med Progress Note ---
SUBJECTIVE Subjective Patient information: Note initiated : 10/03/21 at 1:04 pm Service Date, if different from initiated Date: [] Patient: Juventino Lopez a 76 y/o M admitted on 10/01/21 for AMS, Low BG. Chief Complaint: [] Principal diagnosis: Failure to thrive Interval history: Mr. Lopez is a 76 year old M history of atrial fibrillation status post pacemaker placement and on Xarelto, essential hypertension's, stage III chronic kidney disease, mixed dyslipidemia, COPD, type 2 diabetes mellitus, recent Covid infections in July 2021, presenting with weakness. Patient is a very poor historian and he is not sure what have changed that prompted him to came to the emergency room overnight. He stated that he has the same degree of weakness over the past 4 years. He is also committing of poor appetite but again unchanged over the past 4 years. In addition, he is also complaining of frequent falls. No increased degree of shortness of breath relative to the baseline. He is still on 2 L of oxygen's. Labs showing slight worsening of kidney function with serum creatinine level 2.4 with baseline 1.8. Page n egative. Chest x-ray no change from baseline no acute intrathoracic pathologies. Admission request was made for dehydration and acute kidney injury. 09/30: Kidney functions went back to baseline. c/o dysphagia. Medically ready. Physical therapy recs. SNF placement, will work on that. 10/01: Discussed w with speech therapy yesterday and ordered barium swallow x-ray. Which confirms severe esophageal dysmotility with functional obstruction at the level of the gastroesophageal junction. Currently on dysphagia level 5 minced food diet. Speech therapy following 10/02- No new sx. Eating well. Awaiting placement 10/03- No new sx. Awaiting placement Constitutional Vitals: Vital Signs Temp Pulse Resp BP Pulse Ox 98.7 F 64 16 131/59 93 10/03/21 12:00 10/03/21 03:53 10/03/21 12:00 10/03/21 12:00 10/03/21 12:00 Period Temp Pulse Resp BP Sys/Smith Pulse Ox Last 24 Hr 97.6 F-98.7 F 64-75 16-24 106-131/49-62 92-95 Intake and Output 10/02/21 10/03/21 10/03/21 21:59 05:59 13:59 Intake Total 700 600 Output Total 4 251 370 Balance -4 449 230 Weight 112.491 kg Intake & Output: Intake & Output 10/02/21 10/03/21 10/03/21 21:59 05:59 13:59 Intake Total 700 600 Output Total 4 251 370 Balance -4 449 230 Weight 112.491 kg Intake: Oral 700 600 Output: Void Amount 250 370 # of times incontinent of urine 4 1 Other: Meal Lunch Percent of Meal Consumed 90 Feeding Ability Assist with Tray Set Up Urine Appearance Clear Clear Clear Urine Color Dark Yellow Pale Dark Yellow Urine Odor Normal # Voids 2 1 General appearance: average body habitus, cooperative and no acute distress Head Head exam: Present atraumatic and normocephalic Eye Eye exam: Present normal appearance Respiratory Respiratory exam: Present normal respiratory exam and CTAB; Absent accessory muscle use, decreased breath sounds or respiratory distress Cardiovascular Cardiovascular exam: Present normal rate and rhythm and RRR; Absent bradycardia, gallop, systolic murmur or tachycardia GI/Abdominal GI/Abdominal exam: Present soft Neurological Exam Neurological exam: Present alert and oriented X3; Absent altered or motor sensory deficit OBJ DATA Labs CBC & Chem 7: 09/30/21 05:29 10/02/21 05:28 Labs: Abnormal Lab Results 10/02/21 05:28 Glucose 165 H Meds: Medications Acetaminophen (Acetaminophen 325 Mg Tablet) 650 mg PO Q6HP PRN; Protocol PRN Reason: Per Pain Protocol/Fever > 101 Last Admin: 10/02/21 07:58 Dose: 650 mg Documented by: Albuterol Sulfate (Albuterol Sulfate 200 Puff Inhaler) 2 puff INH Q6HP PRN PRN Reason: shortness of breath or wheezing Albuterol/Ipratropium (Ipratropium/Albuterol 3 Ml Ampul.Neb) 3 ml NEB Q4HRT PRN PRN Reason: Wheezing Last Admin: 10/02/21 12:53 Dose: 3 ml Documented by: Dextrose (Dextrose 50% 50 Ml Vial) 0 ml IV UD PRN PRN Reason: Per Sliding Scale Diagnostic Test (Pha) (Accu-Chek 1 Each Strip) [address] Last Admin: 10/03/21 11:50 Dose: 1 each Documented by: Docusate Sodium (Docusate Sodium 100 Mg Capsule) 100 mg PO BID [facility] Last Admin: 10/03/21 08:06 Dose: 100 mg Documented by: Doxazosin Mesylate (Doxazosin 4 Mg Tablet) 8 mg PO [facility] Last Admin: 10/02/21 21:29 Dose: 8 mg Documented by: Gabapentin (Gabapentin 300 Mg Capsule) 300 mg PO TID [facility] Last Admin: 10/03/21 08:04 Dose: 300 mg Documented by: Glucose (Dextrose 31 Gm Oral.Susp) 15 gm PO PRN PRN PRN Reason: Hypoglycemia Insulin Human Lispro (Insulin Lispro 1 Unit/0.01 Ml Unit) 0 unit SQ [facility]; Protocol Last Admin: 10/03/21 12:07 Dose: 8 units Documented by: Lisinopril (Lisinopril 20 Mg Tablet) 40 mg PO DAILY [facility] Last Admin: 10/03/21 08:06 Dose: 40 mg Documented by: Metoprolol Succinate (Metoprolol Succinate 50 Mg Tab.Xl.24h) 50 mg PO BID [facility] Last Admin: 10/03/21 08:04 Dose: 50 mg Documented by: Ondansetron HCl (Ondansetron 4 Mg/2 Ml Vial) 4 mg IV Q6HP PRN PRN Reason: Nausea And Vomiting Pantoprazole Sodium (Pantoprazole 40 Mg Tablet) 40 mg PO QDAY [facility] Last Admin: 10/03/21 08:05 Dose: 40 mg Documented by: Liraglutide [Victoza 3-Yordy] 0.6 Mg/0.1 Ml (18 Mg/3 Ml) Pen 1.8 dose SUB-Q QDAY [facility] Last Admin: 10/03/21 09:47 Dose: Not Given Documented by: Rivaroxaban (Rivaroxaban 15 Mg Tablet) 15 mg PO QDAY [facility] Last Admin: 10/03/21 08:04 Dose: 15 mg Documented by: Fluticasone/Salmeterol (Fluticasone/Salmeterol 250/50 Inhaler #14) 1 puff INH BID [facility] Last Admin: 10/03/21 09:46 Dose: 1 puff Documented by: Senna (Sennosides 1 Tablet) 2 tab PO [facility] Last Admin: 10/02/21 21:30 Dose: Not Given Documented by: Simvastatin (Simvastatin 40 Mg Tablet) 40 mg PO QDAY [facility] Last Admin: 03/27/22 08:05 Dose: 40 mg Documented by: Sodium Chloride (0.9 % Sodium Chloride 10 Ml Syringe) 10 ml IV Q8 [facility] Last Admin: 10/03/21 05:08 Dose: 10 ml Documented by: Tramadol HCl (Tramadol 50 Mg Tablet) 50 mg PO BID [facility]; Protocol Last Admin: 10/03/21 08:05 Dose: 50 mg Documented by: Vitamin D (Vitamin D3 25 Mcg Tablet) 50 mcg PO DAILY [facility] Last Admin: 10/03/21 08:05 Dose: 50 mcg Documented by: Zolpidem Tartrate (Zolpidem 5 Mg Tablet) 5 mg PO HSP PRN PRN Reason: Insomnia A/P Narrative A/P Narrative: 1. Stage 2 acute kidney injury in the context of chronic kidney disease stage 3: Observation med surg Kidney functions back to baseline Avoid nephrotoxic agents Resume Lisinopril Okay to saline lock 2. T2DM: HgA1c 8.2 Victoza Insulin Lantus 40 unit HS Low dose SSI AC HS Accu Chek AC HS Hypoglycemia protocol Diabetic diet 3. Essential HTN: Continue Metoprolol Resume Lisinopril due to IKE 4. Mixed dyslipidemia: Continue statin therapy 5. h/o COPD, stable: Currently on 2L/min oxygen, baseline Continue bronchodilators 6. Anemia, normocytic normochromic: CBC in the morning to trend H/H 7. Permanent atrial fibrillation: Metoprolol Xarelto 8. Esophageal dysmotility He has followed up with gastroenterology and surgery in the past. His option for Botox injection, balloon dilation or surgical intervention. It appears that his insurance did not pay for Botox injection. Balloon dilation was considered risky. We will defer this for follow-up with his intelligence research specialist and surgeon. Is BMI is 37.6 which indicates he is getting enough nourishment and nutrition by oral intake GI ppx: oral PPI from home regimen DVT ppx: Xarelto Code status: Full Prognosis: stable Disposition: observation med surg; physical therapy--> rehab confirmed. Discharge to rehab on Monday. Time Spent With Patient Time: Total time spent is greater than 50% in coordination of care (as documented) at patient's floor/unit and/or counseling patient: Total time spent with greater than 50% in coordination of care (as documented) at patient's floor/unit and/or counseling patient:: 25 - 35 minutes QUALITY VTE Deep Vein Thrombosis/Pulmonary Embolism Present on Admission: No
[2021-10-03] MEDS: ACETAMINOPHEN 325 MG TABLET PO PRN (20:36)
[2021-10-03] MEDS: DOXAZOSIN 4 MG TABLET PO SCH (20:37)
[2021-10-03] MEDS: SENNOSIDES 1 TABLET PO SCH (20:38)
[2021-10-04] MEDS: 0.9 % SODIUM CHLORIDE 10 ML SYRINGE IV SCH (05:16)
[2021-10-04] MEDS: VITAMIN D3 25 MCG TABLET PO SCH (08:07)
[2021-10-04] MEDS: INSULIN LISPRO 1 UNIT/0.01 ML UNIT SQ SCH ×2 (08:07→11:06)
[2021-10-04] MEDS: LISINOPRIL 20 MG TABLET PO SCH (08:08)
[2021-10-04] MEDS: traMADol 50 MG TABLET PO SCH (08:08)
[2021-10-04] MEDS: RIVAROXABAN 15 MG TABLET PO SCH (08:08)
[2021-10-04] MEDS: ACETAMINOPHEN 325 MG TABLET PO PRN (08:08)
[2021-10-04] MEDS: GABAPENTIN 300 MG CAPSULE PO SCH (08:08)
[2021-10-04] MEDS: PANTOPRAZOLE 40 MG TABLET PO SCH (08:08)
[2021-10-04] MEDS: METOPROLOL SUCCINATE 50 MG TAB.XL.24H PO SCH (08:08)
[2021-10-04] MEDS: DOCUSATE SODIUM 100 MG CAPSULE PO SCH (08:08)
[2021-10-04] MEDS: FLUTICASONE/SALMETEROL 250/50 INHALER #14 INH SCH (08:09)
[2021-10-04] MEDS: SIMVASTATIN 40 MG TABLET PO SCH (08:09)
[2021-10-04] MEDS: LIRAGLUTIDE SUB-Q SCH (08:42)
--- NOTE | 2021-10-04 11:49 | Discharge Summary ---
Discharge Provider Provider Patient information: Note initiated : 10/04/21 at 11:41 am Service Date, if different from initiated Date: [] Patient: Juventino Lopez 76 y/o M admitted on 10/01/21 for AMS, Low BG. Chief Complaint: [] Date of admission: 10/01/21 14:28 Discharge date: 10/04/21 Primary care physician: Tutu Greenberg PA-C Consults: 09/29/21 Consult to Physician [CONS] Stat Comment: Consulting Provider: Juliocesar Landeros Reason For Exam: Physician to Consult Attending physician on discharge: Jeremie Mills Discharging clinician: Jeremie Mills Discharge Meds Discharge Medications Home Medications cholecalciferol (vitamin D3) 50 mcg (2,000 unit) capsule 2,000 unit PO DAILY 05/17/18 [History Confirmed 10/02/21 Last Taken 09/09/21 09:00] fluticasone 250 mcg-salmeterol 50 mcg/dose blistr powdr for inhalation (Advair Diskus) 1 inh INHALATION Q12H #60 each 10/31/18 [Rx Confirmed 10/02/21 Last Taken 11/15/18] rivaroxaban 15 mg tablet 15 mg PO QDAY 90 Days #90 tab 12/22/20 [Rx Confirmed 09/29/21 Last Taken 09/09/21 09:00] albuterol sulfate 90 mcg/actuation aerosol inhaler (Ventolin HFA) 2 puff INHALATION Q6H PRN #18 g 05/31/21 [Rx Confirmed 10/02/21 Last Taken Unknown] insulin aspart U-100 100 unit/mL (3 mL) subcutaneous pen (Novolog Flexpen U-100 Insulin aspart) See Rx Instructions SUB-Q .COMPLEX #15 ml 06/01/21 [Rx Confirmed 09/29/21 Last Taken 09/08/21 21:00] liraglutide 0.6 mg/0.1 mL (18 mg/3 mL) subcutaneous pen injector (Victoza 3-Yordy) 1.8 mg (0.3 mL) SUB-Q QDAY #9 ml 06/21/21 [Rx Confirmed 10/02/21 Last Taken 09/08/21 09:00] pantoprazole 40 mg tablet,delayed release 40 mg PO QDAY 90 Days #90 tab 07/12/21 [Rx Confirmed 09/29/21 Last Taken 09/09/21 09:00] 3 wheeled walker #1 ea 08/18/21 [Rx Confirmed 10/02/21 Last Taken Unknown] furosemide 40 mg tablet 40 mg PO QAM #90 tab 08/18/21 [Rx Confirmed 09/29/21 Last Taken 09/09/21 09:00] insulin glargine 100 unit/mL (3 mL) subcutaneous pen (Lantus Solostar U-100 Insulin) 20 unit SUB-Q QHS ml 08/18/21 [History Confirmed 10/02/21 Last Taken 09/08/21 21:00] simvastatin 40 mg tablet 40 mg PO QDAY 90 Days #90 tab 09/06/21 [Rx Confirmed 09/29/21 Last Taken 09/09/21 09:00] doxazosin 8 mg tablet 1 tab PO QDAY 09/10/21 [History Confirmed 09/29/21 Last Taken 09/09/21 09:00] lisinopril 40 mg tablet 40 mg PO QDAY 90 Days #90 tab 09/20/21 [Rx Confirmed 09/29/21 Last Taken Unknown] gabapentin 300 mg capsule 300 mg PO TID 30 Days #90 cap 09/23/21 [Rx Confirmed 09/29/21 Last Taken Unknown] tramadol 50 mg tablet 50 mg PO BID PRN 10/02/21 [History Confirmed 10/02/21 Last Taken Unknown] metoprolol succinate 50 mg tablet,extended release 24 hr 50 mg PO BID #60 tab 10/04/21 [Rx Last Taken Unknown] COURSE Hospital Course Hospital course: Mr. Lopez is a 76 year old M history of atrial fibrillation status post pacemaker placement and on Xarelto, essential hypertension's, stage III chronic kidney disease, mixed dyslipidemia, COPD, type 2 diabetes mellitus, recent Covid infections in July 2021, presenting with weakness. Patient is a very poor historian and he is not sure what have changed that prompted him to came to the emergency room overnight. He stated that he has the same degree of weakness over the past 4 years. He is also committing of poor appetite but again unchanged over the past 4 years. In addition, he is also complaining of frequent falls. No increased degree of shortness of breath relative to the baseline. He is still on 2 L of oxygen's. Labs showing slight worsening of kidney function with serum creatinine level 2.4 with baseline 1.8. Page negative. Chest x-ray no change from baseline no acute intrathoracic pathologies. Admission request was made for dehydration and acute kidney injury. 09/30: Kidney functions went back to baseline. c/o dysphagia. Medically ready. Physical therapy recs. SNF placement, will work on that. 10/01: Discussed w with speech therapy yesterday and ordered barium swallow x-ray. Which confirms severe esophageal dysmotility with functional obstruction at the level of the gastroesophageal junction. Currently on dysphagia level 5 minced food diet. Speech therapy following. Able to eat food well and is able to maintain his body weight. His BMI is 37. 10/02- No new sx. Eating well. Awaiting placement 10/03- No new sx. Awaiting placement 10/04-mostly concerned about his left knee chronic arthritis related pain. Interested in getting steroid injections. Will refer him to PCP for steroid injection. We discharged back to half-way today. Discharge diagnosis: Acute kidney injury from dehydration. Pertinent studies/significant findings: 1. Stage 2 acute kidney injury in the context of chronic kidney disease stage 3: Kidney functions back to baseline during this admission Resume Lisinopril 2. T2DM: HgA1c 8.2 Victoza Insulin Lantus 20 unit HS, resume after discharge. Can use insulin aspart sliding scale insulin if needed 3. Essential HTN: Continue Metoprolol Resume Lisinopril 4. Mixed dyslipidemia: Continue statin therapy 5. h/o COPD, stable: Currently on 2L/min oxygen, baseline Continue bronchodilators 6. Anemia, normocytic normochromic: CBC in the morning to trend H/H 7. Permanent atrial fibrillation: Metoprolol Xarelto 8. Esophageal dysmotility He has followed up with gastroenterology and surgery in the past. His option for Botox injection, balloon dilation or surgical intervention. It appears that his insurance did not pay for Botox injection. Balloon dilation was considered risky. 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 Is BMI is 37.6 which indicates he is getting enough nourishment and nutrition by oral intake Time Spent with Patient Time attestation: Total time spent providing and/or coordinating discharge services: Time spent: Greater than 30 minutes EXAM Constitutional Vitals: Temp Pulse Resp BP Pulse Ox 98.8 F 70 18 125/42 90 10/04/21 07:12 10/04/21 07:12 10/04/21 07:12 10/04/21 07:12 10/04/21 07:12 General appearance: average body habitus, cooperative and no acute distress Head Head exam: Present atraumatic and normocephalic Eye Eye exam: Present normal appearance ENT ENT exam: Present mucous membranes moist Respiratory Respiratory exam: Present normal respiratory exam and CTAB; Absent accessory muscle use, rales, respiratory distress, stridor or wheezes Cardiovascular Cardiovascular exam: Present normal rate and rhythm and RRR; Absent bradycardia, diastolic murmur, gallop, irregular rhythm or rubs GI/Abdominal GI/Abdominal exam: Present normal bowel sounds and soft; Absent distended, guarding or rebound Expanded Lower Extremity Exam Hip exam: Present normal inspection; Absent swelling Back Exam Back exam: Present normal inspection; Absent CVA tenderness (L), CVA tenderness (R), paraspinal tenderness or vertebral tenderness Neurological Exam Neurological exam: Present alert and oriented X3; Absent abnormal gait or motor sensory deficit Discharge Plan Patient/Caregiver Discharge Instructions Activity: as per physical therapy and increase activity as tolerated Diet: Consistent Carbohydrate and Dysphagia Level 5 Minced & Moist Foods Instructions: Chronic Dysphagia (GEN), Level 2 National Dysphagia Diet (DC) Prescriptions: New metoprolol succinate 50 mg Tablet Extended Release 24 Hr 50 mg PO BID Qty: 60 0RF Continued albuterol sulfate [Ventolin HFA] 90 mcg/actuation HFA aerosol inhaler 2 puff INHALATION Q6H PRN (Reason: shortness of breath or wheezing) Qty: 18 1RF Novolog Flexpen U-100 Insulin 100 unit/mL (3 mL) insulin pen See Rx Instructions unit SUB-Q .COMPLEX Qty: 15 1RF Rx Instructions: inject as per insulin sliding scale protocol max daily dose of 40 units Victoza 3-Yordy 0.6 mg/0.1 mL (18 mg/3 mL) pen injector 1.8 mg SUB-Q QDAY Qty: 9 3RF pantoprazole 40 mg tablet,delayed release (DR/EC) 40 mg PO QDAY 90 Days Qty: 90 1RF simvastatin 40 mg tablet 40 mg PO QDAY 90 Days Qty: 90 1RF lisinopril 40 mg tablet 40 mg PO QDAY 90 Days Qty: 90 1RF gabapentin 300 mg capsule 300 mg PO TID 30 Days Qty: 90 2RF fluticasone propion-salmeterol [Advair Diskus] 250-50 mcg/dose blister with device 1 inh INHALATION Q12H Qty: 60 2RF rivaroxaban 15 mg tablet 15 mg PO QDAY 90 Days Qty: 90 3RF Lantus Solostar U-100 Insulin 100 unit/mL (3 mL) insulin pen 20 unit SUB-Q QHS 0RF Label Comments: take at night furosemide 40 mg tablet 40 mg PO QAM Qty: 90 1RF Rx Instructions: to prevent swelling (DME) 3 wheeled walker See Rx Instructions .Route .MEDSUPPLY Qty: 1 0RF Rx Instructions: As directed cholecalciferol (vitamin D3) 2,000 UNIT capsule 2,000 unit PO DAILY 0RF doxazosin 8 mg tablet 1 tab PO QDAY 0RF tramadol 50 mg Tablet 50 mg PO BID PRN (Reason: Pain) 0RF Other Ambulatory Orders: OT Discharge Order (Routine) Location: None Selected Ordered By: Jeremie Mills Physical Therapy at Discharge - General (Routine) Location: None Selected Ordered By: Jeremie Mills Follow Up Plan Follow up with: Tutu Greenberg PA-C [Primary Care Provider] - Patient Disposition: Home Health Service Rehab Potential: Good Overall status at discharge: patient is back to baseline Discharge Orders: Discharge Order (Routine); Ordered 10/04/21 Ordered By: Jeremie Mills QUALITY VTE Deep Vein Thrombosis/Pulmonary Embolism Present on Admission: No
== END 2021-10-04 13:10 | disposition home health service (06) | DRG 683 ==
LOC: ED 01:27 → INTOOBSV 06:47 → MEDSUR 06:47
PROVIDERS: ADMIT Internal Medicine; ATTEND Internal Medicine Medical Oncology